=== PATIENT | female | born 1965 | race American Indian/Alaskan Native ===

== ENCOUNTER 2017-06-09 13:00 | Observation (INO) | payer MEDICARE, OTHER ==
[2017-06-09 13:24] VITALS: BMI 28.3
--- NOTE | 2017-06-09 14:08 | C.PDOC ---
History Of Present Illness Patient is a 51 y/o female, with past medical history of breast cancer on chemotherapy, is sent to the emergency department by Dr. Real for platelet count of 13 on routine blood work done yesterday. Patient complains of occasional intermittent headache, but denies any at this time. Patient denies any dizziness, visual changes, n/v/d, or fever. No signs of bleeding. Time Seen by Provider: 06/09/17 13:43 Chief Complaint (Nursing): Abnormal Labs History Per: Patient History/Exam Limitations: no limitations Onset/Duration Of Symptoms: Gradual Current Symptoms Are (Timing): Still Present Severity: None Pain Scale Rating Of: 0 Reports Recently: Treated By A Physician Recent travel outside of the [place]: No Additional History Per: Patient Past Medical History Reviewed: Historical Data, Nursing Documentation, Vital Signs Vital Signs: Last Vital Signs Temp 98.5 F 06/09/17 13:24 Pulse 59 L 06/09/17 13:24 Resp 20 06/09/17 13:24 BP 130/82 06/09/17 13:24 Pulse Ox 98 06/09/17 14:11 - Medical History PMH: HTN, Malignancy (Breast CA) Denies: Chronic Kidney Disease Surgical History: - [facility] Procedures C.A.T. SCAN OF THORAX (03/15/14) CLOSED [PERCUTANEOUS] [NEEDLE] BIOPSY OF LUNG (03/15/14) DX ULTRASOUND-THORAX NEC (04/13/14) INSERTION OF TOTALLY IMPLANTABLE VASC ACCESS DEVIC (04/13/14) LYMPHATIC STRUCT BIOPSY (09/04/14) OTHER AND UNSPECIFIED ROBOTIC ASSISTED PROCEDURE (09/04/14) OTHER LOBECTOMY OF LUNG (09/04/14) PACKED CELL TRANSFUSION (09/04/14) THORAX SFT TISS XRAY NEC (04/13/14) TRANSFUSE NONAUT PLATELETS IN PERIPH VEIN, PERC (08/13/16) TRANSFUSE NONAUT RED BLOOD CELLS IN PERIPH VEIN, PERC (08/13/16) Family History: States: Unknown Family Hx - Social History Hx Alcohol Use: No Hx Substance Use: No - Immunization History Hx Tetanus Toxoid Vaccination: No Hx Influenza Vaccination: No Hx Pneumococcal Vaccination: No Review Of Systems Except As Marked, All Systems Reviewed And Found Negative. Constitutional: Negative for: Fever, Chills Eyes: Negative for: Vision Change Cardiovascular: Negative for: Chest Pain, Palpitations Respiratory: Negative for: Shortness of Breath Gastrointestinal: Negative for: Nausea, Vomiting, Abdominal Pain, Diarrhea, Constipation Neurological: Positive for: Headache. Negative for: Dizziness Physical Exam - Physical Exam Appears: Non-toxic, No Acute Distress Skin: Normal Color, Warm, Dry Head: Atraumatic, Normacephalic Eye(s): bilateral: Normal Inspection Neck: Normal ROM, Supple Chest: Symmetrical Cardiovascular: Rhythm Regular, No Murmur Respiratory: Normal Breath Sounds, No Rales, No Rhonchi, No Wheezing Gastrointestinal/Abdominal: Soft, No Tenderness Extremity: Bilateral: Atraumatic, Normal ROM Neurological/Psych: Oriented x3, Normal Speech, Normal Cognition, Other ( Neurologically intact) ED Course And Treatment - Laboratory Results Result Diagrams: 06/09/17 14:26 06/09/17 14:26 Lab Interpretation: Abnormal (WBC 1.6 with 36% neutrophils, platelet ct 11,000) O2 Sat by Pulse Oximetry: 98 (on RA) Pulse Ox Interpretation: Normal Progress Note: Blood work ordered and reviewed. - Physician Consult Information Outcome Of Conversation: Case discussed with Javier. He is requesting she be admitted to the [facility] sales[facility] physician. Discussed with Dr Monroe who agrees to admit for platelet transfusion. Disposition - Disposition Disposition: HOSPITALIZED Disposition Time: 15:18 Condition: FAIR - Clinical Impression Clinical Impression: Severe thrombocytopenia, Neutropenia - Scribe Statement The provider has reviewed the documentation as recorded by the Bailey Benjamin All medical record entries made by the Bailey were at my direction and personally dictated by me. I have reviewed the chart and agree that the record accurately reflects my personal performance of the history, physical exam, medical decision making, and the department course for this patient. I have also personally directed, reviewed, and agree with the discharge instructions and disposition.
[2017-06-09 14:37] LABS: ALBUMIN 3.7 g/dL (3.5-5.0)
[2017-06-09 14:39] LABS: BASO % 0.3 % (0.0-2.0); EOS % 0.5 % (0.0-4.0); HEMOGLOBIN 8.3 g/dL (11.0-16.0); LYMPH # 0.7 K/uL (1.0-4.3); LYMPH % 46.1 % (20.0-40.0); MEAN CELL VOLUME 101.2 fL (81.0-99.0); MEAN CORPUSCULAR HEMOGLOBIN 32.2 pg (27.0-31.0); MEAN CORPUSCULAR HGB CONC 31.8 g/dL (33.0-37.0); MONO # 0.3 K/uL (0.0-0.8); MONO % 16.9 % (0.0-10.0); NEUT # 0.6 K/uL (1.8-7.0); NEUT % 36.2 % (50.0-75.0); NRBC % 1.6 % (0.0-2.0); RBC 2.58 Mil/uL (3.80-5.20); RED CELL DISTRIBUTION WIDTH 19.1 % (11.5-14.5)
[2017-06-09 14:40] LABS: GFR AFRICAN-AMERICAN > 60; GFR NON-AFRICAN AMERICAN > 60
[2017-06-09 14:41] LABS: ALB/GLOB RATIO 1.2 (1.0-2.1); ALT/SGPT 25 U/L (9-52); AST/SGOT 39 U/L (14-36); BLOOD UREA NITROGEN 9 mg/dL (7-17); CALCIUM 8.5 mg/dl (8.6-10.4)
[2017-06-09 14:44] LABS: WHITE BLOOD COUNT 1.6 K/uL (4.8-10.8)
[2017-06-09] MEDS: Dextrose 5%/0.9% NS 1,000 ML IV SCH (17:43)
[2017-06-09 21:04] VITALS: RESP 20
--- NOTE | 2017-06-09 22:05 | CP.PCM.CON ---
Past Patient History - Past Medical History & Family History Past Medical History?: Yes - Past Social History Smoking Status: Never Smoked - CARDIAC Hx Hypertension: Yes - PULMONARY Hx Respiratory Disorders: Yes (lung nodule DUE TO LEFT BREAST CA) - NEUROLOGICAL Hx Neurological Disorder: No Other/Comment: AAOX3 - HEENT Hx HEENT Problems: No - RENAL Hx Chronic Kidney Disease: No - ENDOCRINE/METABOLIC Hx Endocrine Disorders: No - HEMATOLOGICAL/ONCOLOGICAL Hx Blood Disorders: Yes Hx Blood Transfusions: Yes Hx Blood Transfusion Reaction: No Hx Cancer: Yes (breast ca stage 4) Hx Chemotherapy: Yes (LAST CHEMO 05/26/17) - INTEGUMENTARY Hx Dermatological Problems: Yes Other/Comment: LEFT BREAST MASTECTOMY - MUSCULOSKELETAL/RHEUMATOLOGICAL Hx Musculoskeletal Disorders: No Hx Falls: No (DENIES) - GASTROINTESTINAL Hx Gastrointestinal Disorders: No - GENITOURINARY/GYNECOLOGICAL Hx Genitourinary Disorders: No - PSYCHIATRIC Hx Substance Use: No - SURGICAL HISTORY Hx Surgeries: Yes Hx Breast Biopsy: Yes Hx Mastectomy: Yes (LEFT MASTECTOMY 2011) Hx Vascular Access Device: Yes (INSERTION AND REMOVAL PORTACATH re insertion) - ANESTHESIA Hx Anesthesia: Yes Hx Anesthesia Reactions: No Hx Malignant Hyperthermia: No Meds Allergies/Adverse Reactions: Allergies Allergy/AdvReac Type Severity Reaction Status Date / Time No Known Allergies Allergy Verified 06/09/17 13:22 - Medications Medications: Current Medications Amlodipine Besylate (Norvasc) 5 mg PO DAILY [facility] Dextrose/Sodium Chloride (Dextrose 5%/0.9% Ns 1000 Ml) 1,000 mls @ 100 mls/hr IV .Q10H [facility] Last Admin: 06/09/17 17:43 Dose: 100 mls/hr Results - Vital Signs Recent Vital Signs: Last Vital Signs Temp 98.3 F 06/09/17 20:50 Pulse 66 06/09/17 20:50 Resp 20 06/09/17 20:50 BP 142/81 06/09/17 20:50 Pulse Ox 97 06/09/17 20:37 - Labs Result Diagrams: 06/09/17 14:26 06/09/17 14:26 Labs: Laboratory Results - last 24 hr 06/09/17 17:32 Blood Type O POSITIVE Antibody Screen Negative
--- NOTE | 2017-06-09 22:40 | CP.PCM.HP ---
History of Present Illness - History of Present Illness History of Present Illness: CC: low platelet count HPI: Patient is a 51 y/o female, with past medical history of breast cancer diagnosed in 2011 on chemotherapy, is sent to the emergency department by Dr. Real for platelet count of 13 on routine blood work done yesterday. Patient complains of occasional intermittent headache, but denies any at this time. Patient denies any dizziness, visual changes, n/v/d, or fever. No signs of bleeding Present on Admission - Present on Admission Any Indicators Present on Admission: Yes Past Patient History - Past Medical History & Family History Past Medical History?: Yes - Past Social History Smoking Status: Never Smoked - CARDIAC Hx Hypertension: Yes - PULMONARY Hx Respiratory Disorders: Yes (lung nodule DUE TO LEFT BREAST CA) - NEUROLOGICAL Hx Neurological Disorder: No Other/Comment: AAOX3 - HEENT Hx HEENT Problems: No - RENAL Hx Chronic Kidney Disease: No - ENDOCRINE/METABOLIC Hx Endocrine Disorders: No - HEMATOLOGICAL/ONCOLOGICAL Hx Blood Disorders: Yes Hx Blood Transfusions: Yes Hx Blood Transfusion Reaction: No Hx Cancer: Yes (breast ca stage 4) Hx Chemotherapy: Yes (LAST CHEMO 05/26/17) - INTEGUMENTARY Hx Dermatological Problems: Yes Other/Comment: LEFT BREAST MASTECTOMY - MUSCULOSKELETAL/RHEUMATOLOGICAL Hx Musculoskeletal Disorders: No Hx Falls: No (DENIES) - GASTROINTESTINAL Hx Gastrointestinal Disorders: No - GENITOURINARY/GYNECOLOGICAL Hx Genitourinary Disorders: No - PSYCHIATRIC Hx Substance Use: No - SURGICAL HISTORY Hx Surgeries: Yes Hx Breast Biopsy: Yes Hx Mastectomy: Yes (LEFT MASTECTOMY 2011) Hx Vascular Access Device: Yes (INSERTION AND REMOVAL PORTACATH re insertion) - ANESTHESIA Hx Anesthesia: Yes Hx Anesthesia Reactions: No Hx Malignant Hyperthermia: No Meds Allergies/Adverse Reactions: Allergies Allergy/AdvReac Type Severity Reaction Status Date / Time No Known Allergies Allergy Verified 06/09/17 13:22 Physical Exam - Constitutional Appears: No Acute Distress - Head Exam Head Exam: ATRAUMATIC, NORMAL INSPECTION, NORMOCEPHALIC - Eye Exam Eye Exam: EOMI, Normal appearance, PERRL Pupil Exam: NORMAL ACCOMODATION, PERRL - Respiratory Exam Respiratory Exam: Clear to Auscultation Bilateral, NORMAL BREATHING PATTERN - Cardiovascular Exam Cardiovascular Exam: REGULAR RHYTHM Results - Vital Signs Recent Vital Signs: Last Vital Signs Temp 97.9 F 06/09/17 21:44 Pulse 63 06/09/17 21:44 Resp 20 06/09/17 21:44 BP 140/79 06/09/17 21:44 Pulse Ox 97 06/09/17 20:37 - Labs Result Diagrams: 06/09/17 14:26 06/09/17 14:26 Labs: Laboratory Results - last 24 hr 06/09/17 17:32 Blood Type O POSITIVE Antibody Screen Negative Assessment & Plan (1) Dehydration Status: Acute (2) Pancytopenia Assessment and Plan: admit transfuse platelets hematology/oncology consult Status: Acute (3) Breast cancer Status: Chronic (4) HTN (hypertension) Status: Chronic
[2017-06-10] MEDS: Dextrose 5%/0.9% NS 1,000 ML IV SCH (02:30)
[2017-06-10 06:38] LABS: BASO % 0.6 % (0.0-2.0); EOS % 0.6 % (0.0-4.0); HEMOGLOBIN 8.1 g/dL (11.0-16.0); LYMPH # 0.7 K/uL (1.0-4.3); LYMPH % 52.5 % (20.0-40.0); MEAN CELL VOLUME 100.7 fL (81.0-99.0); MEAN CORPUSCULAR HEMOGLOBIN 32.3 pg (27.0-31.0); MEAN CORPUSCULAR HGB CONC 32.1 g/dL (33.0-37.0); MEAN PLATELET VOLUME 8.2 fL (7.2-11.7); MONO # 0.3 K/uL (0.0-0.8); MONO % 19.2 % (0.0-10.0); NEUT # 0.4 K/uL (1.8-7.0); NEUT % 27.1 % (50.0-75.0); NRBC % 1.4 % (0.0-2.0); RBC 2.5 Mil/uL (3.80-5.20); RED CELL DISTRIBUTION WIDTH 18.9 % (11.5-14.5)
[2017-06-10 06:43] LABS: WHITE BLOOD COUNT 1.4 K/uL (4.8-10.8)
[2017-06-10 07:18] LABS: ALBUMIN 3.3 g/dL (3.5-5.0)
[2017-06-10 07:20] LABS: ALB/GLOB RATIO 1.1 (1.0-2.1); AST/SGOT 27 U/L (14-36); GFR AFRICAN-AMERICAN > 60; GFR NON-AFRICAN AMERICAN > 60
[2017-06-10 07:21] LABS: ALT/SGPT 25 U/L (9-52); BLOOD UREA NITROGEN 8 mg/dL (7-17); CALCIUM 8.6 mg/dl (8.6-10.4)
[2017-06-10 07:56] VITALS: BP 118/73; PULSE 55; TEMP 98.3; O2SAT 98
--- NOTE | 2017-06-10 11:13 | CP.PCM.PN ---
Subjective - Date & Time of Evaluation Date of Evaluation: 06/10/17 Time of Evaluation: 11:13 - Subjective Subjective: awake, alert, no sob or chest pains. Objective - Vital Signs/Intake and Output Vital Signs (last 24 hours): Temp Pulse Resp BP Pulse Ox 98.3 F 55 L 20 118/73 98 06/10/17 07:55 06/10/17 07:55 06/10/17 07:55 06/10/17 07:55 06/10/17 07:55 Intake and Output: 06/10/17 06/10/17 06:59 18:59 Intake Total 100 920 Balance 100 920 - Medications Medications: Current Medications Amlodipine Besylate (Norvasc) 5 mg PO DAILY [facility] Last Admin: 06/10/17 09:15 Dose: 5 mg Heparin Sodium (Porcine) (Heparin Lock Flush) 300 units IVF ONCE ONE Stop: 06/10/17 11:07 Dextrose/Sodium Chloride (Dextrose 5%/0.9% Ns 1000 Ml) 1,000 mls @ 100 mls/hr IV .Q10H [facility] Last Admin: 06/10/17 02:30 Dose: Not Given - Labs Labs: 06/10/17 06:25 06/10/17 06:25 Assessment and Plan - Assessment and Plan (Free Text) Assessment: Patient admitted with severe thrombocytopenia, received platelet transfusion last night, platelet increased to 50 this am. Seen and examined, alert and oriented x3, NAD. Denies any sob or chest pains. Cleared by oncologyst, D/W DR Monroe, plan for discharge home today. Advised to follow up in the office in 1 week.
--- NOTE | 2017-06-10 21:15 | CP.PCM.DIS ---
Provider - Provider Date of Admission: 06/09/17 15:20 Attending physician: Esteban Monroe MD Diagnosis - Discharge Diagnosis (1) Dehydration Status: Acute (2) Pancytopenia Status: Acute (3) Breast cancer Status: Chronic (4) HTN (hypertension) Status: Chronic Hospital Course - Lab Results Lab Results: Most Recent Lab Values WBC 1.4 K/uL (4.8-10.8) L* 06/10/17 06:25 RBC 2.50 Mil/uL (3.80-5.20) L 06/10/17 06:25 Hgb 8.1 g/dL (11.0-16.0) L 06/10/17 06:25 Hct 25.2 % (34.0-47.0) L 06/10/17 06:25 MCV 100.7 fL (81.0-99.0) H 06/10/17 06:25 MCH 32.3 pg (27.0-31.0) H 06/10/17 06:25 MCHC 32.1 g/dL (33.0-37.0) L 06/10/17 06:25 RDW 18.9 % (11.5-14.5) H 06/10/17 06:25 Plt Count 50 K/uL (130-400) L D 06/10/17 06:25 MPV 8.2 fL (7.2-11.7) 06/10/17 06:25 Neut % (Auto) 27.1 % (50.0-75.0) L 06/10/17 06:25 Lymph % (Auto) 52.5 % (20.0-40.0) H 06/10/17 06:25 [place] % (Auto) 19.2 % (0.0-10.0) H 06/10/17 06:25 Eos % (Auto) 0.6 % (0.0-4.0) 06/10/17 06:25 Baso % (Auto) 0.6 % (0.0-2.0) 06/10/17 06:25 Neut # 0.4 K/uL (1.8-7.0) L 06/10/17 06:25 Lymph # 0.7 K/uL (1.0-4.3) L 06/10/17 06:25 [place] # 0.3 K/uL (0.0-0.8) 06/10/17 06:25 Eos # 0.0 K/uL (0.0-0.7) 06/10/17 06:25 Baso # 0.0 K/uL (0.0-0.2) 06/10/17 06:25 Differential Comment 06/09/17 14:26 Smear Path Review 06/09/17 14:26 Sodium 143 mmol/L (132-148) 06/10/17 06:25 Potassium 3.2 mmol/L (3.6-5.2) L 06/10/17 06:25 Chloride 102 mmol/L (98-107) 06/10/17 06:25 Carbon Dioxide 29 mmol/L (22-30) 06/10/17 06:25 Anion Gap 15 (10-20) 06/10/17 06:25 BUN 8 mg/dL (7-17) 06/10/17 06:25 Creatinine 0.7 MG/DL (0.7-1.2) 06/10/17 06:25 Est GFR ( Amer) > 60 06/10/17 06:25 Est GFR (Non-Af Amer) > 60 06/10/17 06:25 Random Glucose 89 mg/dL (65-105) 06/10/17 06:25 Calcium 8.6 mg/dl (8.6-10.4) 06/10/17 06:25 Total Bilirubin 0.7 mg/dL (0.2-1.3) 06/10/17 06:25 AST 27 U/L (14-36) 06/10/17 06:25 ALT 25 U/L (9-52) 06/10/17 06:25 Alkaline Phosphatase 61 U/L (38-126) 06/10/17 06:25 Total Protein 6.3 g/dL (6.3-8.3) 06/10/17 06:25 Albumin 3.3 g/dL (3.5-5.0) L 06/10/17 06:25 Globulin 3.0 gm/dL (2.2-3.9) 06/10/17 06:25 Albumin/Globulin Ratio 1.1 (1.0-2.1) 06/10/17 06:25 Blood Type O POSITIVE 06/09/17 17:32 Antibody Screen Negative 06/09/17 17:32 Discharge Exam - Head Exam Head Exam: ATRAUMATIC, NORMAL INSPECTION, NORMOCEPHALIC Discharge Plan - Follow Up Plan Condition: FAIR Disposition: HOME/ ROUTINE Instructions: Blood Transfusion (GEN), Blood Transfusion Reactions (GEN), Neutropenia (DC), Thrombocytopenia (DC) Additional Instructions: F/U with in the office in one week. Referrals: Mathew Real MD [Staff Provider] - Esteban Monroe MD [Staff Provider] -
== END 2017-06-10 11:29 | disposition home or self-care (01) ==
LOC: C.ER 13:00 → C.9E 15:20 → C.3T 15:44
PROVIDERS: ADMIT Internal Medicine; ATTEND Internal Medicine
DX: D61.818 Other pancytopenia (principal); E86.0 Dehydration; I10 Essential (primary) hypertension; Z85.3 Personal history of malignant neoplasm of breast; Z90.12 Acquired absence of left breast and nipple

== ENCOUNTER 2017-12-27 12:20 | Inpatient (IN) | payer MEDICARE, OTHER ==
[2017-12-27 12:28] VITALS: BMI 29.2
[2017-12-27] MEDS ORDERED: Sodium Chloride 0.9% 1,000 ML IV ONE (14:46)
--- NOTE | 2017-12-27 14:46 | C.PDOC ---
History Of Present Illness 52 y/o female, brought by ambulance, presents to the ER complaining of neck pain which has been present for the past 2 days. Patient has a history of breast cancer and metastatic lung cancer. Her oncologist is and she recently had radiation therapy in the neck. Sister states that she has generalized weakness and a decreased appetite. Patient denies having headache, fever, cough, shortness of breath, and abdominal pain. Time Seen by Provider: 12/27/17 14:16 Chief Complaint (Nursing): Weakness/Neurological Deficit History Per: Patient History/Exam Limitations: no limitations Onset/Duration Of Symptoms: Days Current Symptoms Are (Timing): Still Present Severity: Moderate Past Medical History Reviewed: Historical Data, Nursing Documentation, Vital Signs Vital Signs: Last Vital Signs Temp 98.3 F 12/27/17 12:28 Pulse 82 12/27/17 16:44 Resp 18 12/27/17 16:44 BP 111/81 12/27/17 16:44 Pulse Ox 98 12/27/17 15:34 - Medical History PMH: Anemia (blood transfusions), HTN, Malignancy (Breast CA) Denies: Chronic Kidney Disease Surgical History: Other Surgeries: Hx of surgeries - [facility] Procedures C.A.T. SCAN OF THORAX (03/15/14) CLOSED [PERCUTANEOUS] [NEEDLE] BIOPSY OF LUNG (03/15/14) DX ULTRASOUND-THORAX NEC (04/13/14) INSERTION OF TOTALLY IMPLANTABLE VASC ACCESS DEVIC (04/13/14) LYMPHATIC STRUCT BIOPSY (09/04/14) OTHER AND UNSPECIFIED ROBOTIC ASSISTED PROCEDURE (09/04/14) OTHER LOBECTOMY OF LUNG (09/04/14) PACKED CELL TRANSFUSION (09/04/14) THORAX SFT TISS XRAY NEC (04/13/14) TRANSFUSE NONAUT PLATELETS IN PERIPH VEIN, PERC (08/13/16) TRANSFUSE NONAUT RED BLOOD CELLS IN PERIPH VEIN, PERC (08/13/16) Family History: States: No Known Family Hx - Social History Hx Alcohol Use: No Hx Substance Use: No - Immunization History Hx Tetanus Toxoid Vaccination: No Hx Influenza Vaccination: No Hx Pneumococcal Vaccination: No Review Of Systems Except As Marked, All Systems Reviewed And Found Negative. Constitutional: Positive for: Malaise. Negative for: Fever, Chills Cardiovascular: Negative for: Chest Pain Respiratory: Negative for: Cough, Shortness of Breath Gastrointestinal: Negative for: Abdominal Pain Musculoskeletal: Positive for: Neck Pain Neurological: Negative for: Headache Physical Exam - Physical Exam Appears: No Acute Distress Skin: Normal Color, Warm Head: Atraumatic, Normacephalic Eye(s): bilateral: Normal Inspection Nose: Normal Oral Mucosa: Dry Lips: Other (chapped) Neck: Other (uncapped soft collar on neck) Chest: Other (left mastectomy) Cardiovascular: Rhythm Regular Respiratory: Normal Breath Sounds, No Accessory Muscle Use, No Rales, No Rhonchi , No Wheezing Gastrointestinal/Abdominal: Normal Exam, Soft, No Tenderness Extremity: Normal ROM Neurological/Psych: Oriented x3, Normal Speech, Normal Motor, Normal Sensation ED Course And Treatment - Laboratory Results Result Diagrams: 12/27/17 15:42 12/27/17 16:15 O2 Sat by Pulse Oximetry: 98 (RA) Pulse Ox Interpretation: Normal Medical Decision Making Medical Decision Making: Plan: --CXR --Labs --UA --EKG --Flu Swab Disposition Discussed With DrPollo: Mathew Real Doctor Will See Patient In The: Hospital Counseled Patient/Family Regarding: Studies Performed, Diagnosis - Disposition Disposition Time: 16:49 Condition: GUARDED Forms: [employer] (Romanian) - POA Present On Arrival: None - Clinical Impression Clinical Impression: Dehydration, Pancytopenia due to chemotherapy, Metastatic cancer - Scribe Statement The provider has reviewed the documentation as recorded by the Curlyibe Myke Cowan Provider Attestation: All medical record entries made by the Scribe were at my direction and personally dictated by me. I have reviewed the chart and agree that the record accurately reflects my personal performance of the history, physical exam, medical decision making, and the department course for this patient. I have also personally directed, reviewed, and agree with the discharge instructions and disposition. Decision To Admit - Pt Status Changed To: Hospital Disposition Of: Inpatient - Admit Certification Admit to Inpatient:: After my assessment, the patient will require hospitalization for at least two midnights. This is because of the severity of symptoms shown, intensity of services needed, and/or the medical risk in this patient being treated as an outpatient. - InPatient: Physician Admission Certification: I certify that this patient requires 2 or more midnights of care for the following reason:: pancitopenic - . Bed Request Type: Regular Admitting Physician: Hu Benjamin Patient Diagnosis: Dehydration, Pancytopenia due to chemotherapy, Metastatic cancer
[2017-12-27] MEDS ORDERED: Sodium Chloride 0.9% 1,000 ML ONE (15:02)
--- NOTE | 2017-12-27 15:47 | RAD ---
PROCEDURE: CHEST RADIOGRAPH, 1 VIEW HISTORY: SOB COMPARISON: 09/08/2014 FINDINGS: LUNGS: Clear. PLEURA: No pneumothorax or pleural fluid seen. CARDIOVASCULAR: Normal heart size. Right central venous infusion port. OSSEOUS STRUCTURES: Sclerosis of the lateral border of the scapula extending to the glenoid and coracoid process. 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 However, this has previously been evaluated with radionuclide bone scan and described as likely reflecting sclerotic metastasis. VISUALIZED UPPER ABDOMEN: Normal. OTHER FINDINGS: None. IMPRESSION: Sclerosis of the coracoid, glenoid and lateral margin of the right scapula. Possible Paget's disease versus sclerotic metastasis. No acute infiltrate.
[2017-12-27 15:52] LABS: BASO % 0.1 % (0.0-2.0); EOS % 0.5 % (0.0-4.0); LYMPH # 0.2 K/uL (1.0-4.3); LYMPH % 15.6 % (20.0-40.0); MEAN CORPUSCULAR HEMOGLOBIN 33.2 pg (27.0-31.0); MEAN CORPUSCULAR HGB CONC 32.6 g/dL (33.0-37.0); MEAN PLATELET VOLUME 9.1 fL (7.2-11.7); MONO # 0.1 K/uL (0.0-0.8); MONO % 9.5 % (0.0-10.0); NEUT # 0.9 K/uL (1.8-7.0); NEUT % 74.3 % (50.0-75.0); NRBC % 0.8 % (0.0-2.0); RBC 4.02 Mil/uL (3.80-5.20); RED CELL DISTRIBUTION WIDTH 19.3 % (11.5-14.5)
[2017-12-27 15:58] LABS: WHITE BLOOD COUNT 1.2 K/uL (4.8-10.8)
[2017-12-27 15:59] LABS: HEMOGLOBIN 13.4 g/dL (11.0-16.0); MEAN CELL VOLUME 101.9 fL (81.0-99.0)
[2017-12-27 16:35] LABS: ALB/GLOB RATIO 1.1 (1.0-2.1); ALBUMIN 3.7 g/dL (3.5-5.0); ALT/SGPT 31 U/L (9-52); AST/SGOT 25 U/L (14-36); BLOOD UREA NITROGEN 28 mg/dL (7-17); CALCIUM 8.3 mg/dl (8.6-10.4); GFR AFRICAN-AMERICAN > 60; GFR NON-AFRICAN AMERICAN > 60
[2017-12-27 16:45] LABS: B-TYPE NATRIURETIC PEPTIDE 332 pg/mL (0-900)
--- NOTE | 2017-12-27 19:33 | CP.PCM.HP ---
Past Patient History - Infectious Disease Hx of Infectious Diseases: None - Past Medical History & Family History Past Medical History?: Yes - Past Social History Smoking Status: Never Smoked - CARDIAC Hx Hypertension: Yes - PULMONARY Hx Respiratory Disorders: No Other/Comment: lung bx r lower lobe, right lower lobectomy 09/04/2014 - NEUROLOGICAL Hx Neurological Disorder: No - HEENT Hx HEENT Problems: No - RENAL Hx Chronic Kidney Disease: No - ENDOCRINE/METABOLIC Hx Endocrine Disorders: No - HEMATOLOGICAL/ONCOLOGICAL Hx Anemia: Yes (blood transfusions) - INTEGUMENTARY Hx Dermatological Problems: Yes Other/Comment: LEFT BREAST MASTECTOMY - MUSCULOSKELETAL/RHEUMATOLOGICAL Hx Musculoskeletal Disorders: Yes Hx Falls: Yes Hx Unsteady Gait: Yes (off balance unsteady at times) - GASTROINTESTINAL Other/Comment: breast ca and chemo - GENITOURINARY/GYNECOLOGICAL Hx Genitourinary Disorders: No - PSYCHIATRIC Hx Substance Use: No - SURGICAL HISTORY Hx Vascular Access Device: Yes Other/Comment: R sided port. - ANESTHESIA Hx Anesthesia: Yes Hx Anesthesia Reactions: No Hx Malignant Hyperthermia: No Meds Allergies/Adverse Reactions: Allergies Allergy/AdvReac Type Severity Reaction Status Date / Time No Known Allergies Allergy Verified 12/10/17 13:31 Physical Exam - Constitutional Appears: Well - Head Exam Head Exam: ATRAUMATIC, NORMAL INSPECTION, NORMOCEPHALIC - Eye Exam Eye Exam: EOMI, Normal appearance, PERRL Pupil Exam: NORMAL ACCOMODATION, PERRL - ENT Exam ENT Exam: Mucous Membranes Moist, Normal Exam - Neck Exam Neck exam: Positive for: Normal Inspection - Respiratory Exam Respiratory Exam: Decreased Breath Sounds - Cardiovascular Exam Cardiovascular Exam: REGULAR RHYTHM, +S1, +S2 - GI/Abdominal Exam GI & Abdominal Exam: Diminished Bowel Sounds, Soft - Rectal Exam Rectal Exam: Deferred Results - Vital Signs Recent Vital Signs: Last Vital Signs Temp 98.3 F 12/27/17 12:28 Pulse 78 12/27/17 17:43 Resp 100 H 12/27/17 17:43 BP 115/73 12/27/17 17:43 Pulse Ox 98 12/27/17 16:50 - Labs Result Diagrams: 12/27/17 15:42 12/27/17 16:15 Labs: Laboratory Results - last 24 hr 12/27/17 12/27/17 12/27/17 15:10 15:42 16:15 WBC 1.2 L* RBC 4.02 Hgb 13.4 D Hct 41.0 MCV 101.9 H D MCH 33.2 H MCHC 32.6 L RDW 19.3 H Plt Count 39 L D MPV 9.1 Neut % (Auto) 74.3 Lymph % (Auto) 15.6 L [place] % (Auto) 9.5 Eos % (Auto) 0.5 Baso % (Auto) 0.1 Neut # (Auto) 0.9 L Lymph # (Auto) 0.2 L [place] # (Auto) 0.1 Eos # (Auto) 0.0 Baso # (Auto) 0.0 Sodium 142 Potassium 3.5 L Chloride 103 Carbon Dioxide 29 Anion Gap 14 BUN 28 H Creatinine 0.6 L Est GFR ( Amer) > 60 Est GFR (Non-Af Amer) > 60 Random Glucose 116 H Calcium 8.3 L Total Bilirubin 1.2 AST 25 ALT 31 Alkaline Phosphatase 80 Troponin I 0.0540 NT-Pro-B Natriuret Pep 332 Total Protein 7.1 Albumin 3.7 Globulin 3.4 Albumin/Globulin Ratio 1.1 Influenza Typ A,B (EIA) Negative for flu a/b
[2017-12-28 02:47] LABS: SQUAMOUS EPITHIAL 7 /hpf (0-5); URINE BACTERIA RARE (<OCC); URINE BILIRUBIN NEGATIVE (NEGATIVE); URINE BLOOD NEGATIVE (NEGATIVE); URINE CLARITY Hazy (Clear); URINE COLOR Yellow (YELLOW); URINE GLUCOSE (UA) NORMAL (Normal); URINE LEUKOCYTE ESTERASE NEG Leu/uL (Negative); URINE NITRATE NEGATIVE (NEGATIVE); URINE PROTEIN NEGATIVE (NEGATIVE)
[2017-12-28] MEDS ORDERED: Oxycodone/Acetaminophen 5/325 mg Tab ONE ×2 (04:07→08:14)
[2017-12-28] MEDS: Oxycodone/Acetaminophen 5/325 mg Tab PO SCH ×3 (04:16→12:00)
[2017-12-28] MEDS ORDERED: Enoxaparin 30 mg Syringe SC SCH (10:00)
[2017-12-28] MEDS: levETIRAcetam 100 mg/ml (5ml) Oral Syringe PO SCH ×2 (11:14→18:04)
[2017-12-28] MEDS: POLYETHYLENE GLYCOL 3350 17 GM/Dose PACKET PO SCH (11:15)
--- NOTE | 2017-12-28 11:51 | CARD ---
APPROVED REPORT EKG Measurement Heart [id number] <Conclusion> Normal sinus rhythm Nonspecific ST abnormality Abnormal ECG
[2017-12-28 14:26] LABS: BASO % 0.5 % (0.0-2.0); EOS % 0.7 % (0.0-4.0); LYMPH # 0.2 K/uL (1.0-4.3); LYMPH % 21.8 % (20.0-40.0); MEAN CELL VOLUME 101.8 fL (81.0-99.0); MEAN CORPUSCULAR HEMOGLOBIN 33.6 pg (27.0-31.0); MEAN PLATELET VOLUME 8.7 fL (7.2-11.7); MONO # 0.1 K/uL (0.0-0.8); MONO % 19.6 % (0.0-10.0); NEUT # 0.4 K/uL (1.8-7.0); NEUT % 57.4 % (50.0-75.0); RBC 3.31 Mil/uL (3.80-5.20); RED CELL DISTRIBUTION WIDTH 18.5 % (11.5-14.5)
[2017-12-28 14:35] LABS: WHITE BLOOD COUNT 0.7 K/uL (4.8-10.8)
[2017-12-28 14:36] LABS: HEMOGLOBIN 11.2 g/dL (11.0-16.0)
[2017-12-28 14:43] LABS: ALB/GLOB RATIO 1.1 (1.0-2.1); ALT/SGPT 30 U/L (9-52); AST/SGOT 23 U/L (14-36); BLOOD UREA NITROGEN 17 mg/dL (7-17); CALCIUM 7.7 mg/dl (8.6-10.4); GFR AFRICAN-AMERICAN > 60; GFR NON-AFRICAN AMERICAN > 60
[2017-12-28] MEDS: Potassium Ch 20mEq in D5-1/2NS 1,000 ML IV SCH (15:55)
[2017-12-28] MEDS ORDERED: Potassium Chloride 20 mEq ER Tab PO ONE ×2 (16:00→18:00)
--- NOTE | 2017-12-28 16:27 | CP.PCM.PN ---
Subjective - Date & Time of Evaluation Date of Evaluation: 12/28/17 Time of Evaluation: 10:00 - Subjective Subjective: clinically same Objective - Vital Signs/Intake and Output Vital Signs (last 24 hours): Temp Pulse Resp BP Pulse Ox 98.3 F 72 20 95/66 L 95 12/28/17 08:07 12/28/17 08:07 12/28/17 08:07 12/28/17 08:07 12/28/17 08:07 - Medications Medications: Current Medications Amlodipine Besylate (Norvasc) 5 mg PO DAILY [facility] Last Admin: 12/28/17 11:15 Dose: 5 mg Dexamethasone (Decadron) 4 mg PO BID [facility] Last Admin: 12/28/17 11:14 Dose: 4 mg Famotidine (Pepcid) 20 mg PO BID [facility] Last Admin: 12/28/17 11:15 Dose: 20 mg Potassium Chloride/Dextrose/Sod Cl (Potassium Chl 20 Meq In D5-1/2ns) 1,000 mls @ 80 mls/hr IV .[id number] [facility] Levetiracetam (Keppra) 500 mg PO BID [facility] Last Admin: 12/28/17 11:14 Dose: 500 mg Ondansetron HCl (Zofran Inj) 4 mg IVP Q8H PRN PRN Reason: Nausea/Vomiting Oxycodone/Acetaminophen (Percocet 5/325 Mg Tab) 1 tab PO Q4 PRN PRN Reason: Pain, severe (8-10) Stop: 12/31/17 04:01 Polyethylene Glycol (Miralax) 17 gm PO DAILY [facility] Last Admin: 12/28/17 11:15 Dose: 17 gm - Labs Labs: 12/28/17 14:16 12/28/17 14:16 - Constitutional Appears: Well - Head Exam Head Exam: ATRAUMATIC, NORMAL INSPECTION, NORMOCEPHALIC - Eye Exam Eye Exam: EOMI, Normal appearance, PERRL Pupil Exam: NORMAL ACCOMODATION, PERRL - ENT Exam ENT Exam: Mucous Membranes Moist, Normal Exam - Neck Exam Neck Exam: Full ROM, Normal Inspection. absent: Lymphadenopathy - Respiratory Exam Respiratory Exam: Decreased Breath Sounds - Cardiovascular Exam Cardiovascular Exam: REGULAR RHYTHM, +S1, +S2 - GI/Abdominal Exam GI & Abdominal Exam: Soft, Diminished Bowel Sounds - Rectal Exam Rectal Exam: Deferred
--- NOTE | 2017-12-28 18:51 | CP.PCM.CON ---
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 The patient was initially diagnosed with a localized breast cancer in 2011 but unfortunately was found to have lung metastasis in 2013. She notes to diminished appetite and weakness for several days. She denies nausea and vomiting. She denied fevers and chills. Past medical history: Stage IV breast cancer Past surgical history: Portacath placement Family history: Denies hematologic and oncologic problems Social history: Denies tobacco, alcohol, and illicit drug use. Allergies: NKA Review of systems: All remaining review of systems including HEENT, cardiovascular, respiratory, gastrointestinal, genitourinary, musculoskeletal, dermatologic, neurologic, and psychiatric are negative unless mentioned in the HPI. Past Patient History - Infectious Disease Hx of Infectious Diseases: None - Past Medical History & Family History Past Medical History?: Yes - Past Social History Smoking Status: Never Smoked - CARDIAC Hx Hypertension: Yes - PULMONARY Hx Respiratory Disorders: No Other/Comment: lung bx r lower lobe, right lower lobectomy 09/04/2014 - NEUROLOGICAL Hx Neurological Disorder: No - HEENT Hx HEENT Problems: No - RENAL Hx Chronic Kidney Disease: No - ENDOCRINE/METABOLIC Hx Endocrine Disorders: No - HEMATOLOGICAL/ONCOLOGICAL Hx Anemia: Yes (blood transfusions) Hx Cancer: Yes Hx Chemotherapy: Yes Hx Metastesis: Yes - INTEGUMENTARY Hx Dermatological Problems: Yes Other/Comment: LEFT BREAST MASTECTOMY - MUSCULOSKELETAL/RHEUMATOLOGICAL Hx Musculoskeletal Disorders: Yes Hx Falls: Yes Hx Unsteady Gait: Yes (off balance unsteady at times) - GASTROINTESTINAL Other/Comment: breast ca and chemo - GENITOURINARY/GYNECOLOGICAL Hx Genitourinary Disorders: No - PSYCHIATRIC Hx Psychophysiologic Disorder: No Hx Substance Use: No - SURGICAL HISTORY Hx Surgeries: Yes Hx Mastectomy: Yes Hx Vascular Access Device: Yes Other/Comment: R sided port. - ANESTHESIA Hx Anesthesia: Yes Hx Anesthesia Reactions: No Hx Malignant Hyperthermia: No Meds Allergies/Adverse Reactions: Allergies Allergy/AdvReac Type Severity Reaction Status Date / Time No Known Allergies Allergy Verified 12/10/17 13:31 - Medications Medications: Current Medications Amlodipine Besylate (Norvasc) 5 mg PO DAILY [facility] Last Admin: 12/28/17 11:15 Dose: 5 mg Dexamethasone (Decadron) 4 mg PO BID [facility] Last Admin: 12/28/17 18:04 Dose: 4 mg Famotidine (Pepcid) 20 mg PO BID [facility] Last Admin: 12/28/17 18:04 Dose: 20 mg Potassium Chloride/Dextrose/Sod Cl (Potassium Chl 20 Meq In D5-1/2ns) 1,000 mls @ 80 mls/hr IV .[id number] [facility] Last Admin: 12/28/17 15:55 Dose: 80 mls/hr Levetiracetam (Keppra) 500 mg PO BID [facility] Last Admin: 12/28/17 18:04 Dose: 500 mg Ondansetron HCl (Zofran Inj) 4 mg IVP Q8H PRN PRN Reason: Nausea/Vomiting Oxycodone/Acetaminophen (Percocet 5/325 Mg Tab) 1 tab PO Q4 PRN PRN Reason: Pain, severe (8-10) Stop: 12/31/17 04:01 Polyethylene Glycol (Miralax) 17 gm PO DAILY [facility] Last Admin: 12/28/17 11:15 Dose: 17 gm Physical Exam - Head Exam Head Exam: ATRAUMATIC - Eye Exam Eye Exam: Normal appearance - ENT Exam ENT Exam: Mucous Membranes Dry - Respiratory Exam Respiratory Exam: NORMAL BREATHING PATTERN - Cardiovascular Exam Cardiovascular Exam: +S1, +S2 - GI/Abdominal Exam GI & Abdominal Exam: Normal Bowel Sounds - Extremities Exam Extremities exam: Positive for: normal inspection - Psychiatric Exam Psychiatric exam: Normal Affect, Normal Mood - Skin Skin Exam: Warm Results - Vital Signs Recent Vital Signs: Last Vital Signs Temp 97.4 F L 12/28/17 16:00 Pulse 70 12/28/17 16:00 Resp 20 12/28/17 16:00 BP 103/69 12/28/17 16:00 Pulse Ox 95 12/28/17 16:00 - Labs Result Diagrams: 12/28/17 14:16 12/28/17 14:16 Labs: Laboratory Results - last 24 hr 12/28/17 12/28/17 12/28/17 02:22 14:16 14:16 WBC 0.7 L* RBC 3.31 L Hgb 11.2 D Hct 33.7 L MCV 101.8 H MCH 33.6 H MCHC 33.0 RDW 18.5 H Plt Count 27 L* D MPV 8.7 Neut % (Auto) 57.4 Lymph % (Auto) 21.8 [place] % (Auto) 19.6 H Eos % (Auto) 0.7 Baso % (Auto) 0.5 Neut # (Auto) 0.4 L Lymph # (Auto) 0.2 L [place] # (Auto) 0.1 Eos # (Auto) 0.0 Baso # (Auto) 0.0 Sodium 137 Potassium 3.3 L Chloride 103 Carbon Dioxide 29 Anion Gap 9 L BUN 17 Creatinine 0.4 L Est GFR ( Amer) > 60 Est GFR (Non-Af Amer) > 60 Random Glucose 117 H Calcium 7.7 L Total Bilirubin 1.2 AST 23 ALT 30 Alkaline Phosphatase 70 Total Protein 5.8 L Albumin 3.0 L Globulin 2.8 Albumin/Globulin Ratio 1.1 Urine Color Yellow Urine Clarity Hazy Urine pH 6.0 Ur Specific [place] 1.024 Urine Protein Negative Urine Glucose (UA) Normal Urine Ketones Negative Urine Blood Negative Urine Nitrate Negative Urine Bilirubin Negative Urine Urobilinogen 4.0 H Ur Leukocyte Esterase Neg Urine WBC (Auto) 2 Urine RBC (Auto) 1 Ur Squamous Epith Cells 7 H Urine Bacteria Rare Hyaline Casts 3-5 H Assessment & Plan (1) Pancytopenia due to chemotherapy Assessment and Plan: severe neutropenia on Granix no currentl transfusion indication for anemia/thrombocytopenia repeat CBC in AM Status: Acute (2) Breast cancer Assessment and Plan: stage IV on salvage chemotherapy outpatient treatment Thank you for this interesting consult. Status: Chronic
[2017-12-29] MEDS: Potassium Ch 20mEq in D5-1/2NS 1,000 ML IV SCH ×4 (03:30→23:09)
[2017-12-29] MEDS: Oxycodone/Acetaminophen 5/325 mg Tab PO PRN (04:14)
[2017-12-29 07:53] LABS: BASO % 0.6 % (0.0-2.0); HEMOGLOBIN 10.6 g/dL (11.0-16.0); LYMPH # 0.2 K/uL (1.0-4.3); LYMPH % 26.4 % (20.0-40.0); MEAN CELL VOLUME 101.5 fL (81.0-99.0); MEAN CORPUSCULAR HEMOGLOBIN 34.4 pg (27.0-31.0); MEAN CORPUSCULAR HGB CONC 33.8 g/dL (33.0-37.0); MONO # 0.2 K/uL (0.0-0.8); MONO % 21.4 % (0.0-10.0); NEUT # 0.4 K/uL (1.8-7.0); NEUT % 51.6 % (50.0-75.0); NRBC % 0.2 % (0.0-2.0); RBC 3.09 Mil/uL (3.80-5.20); RED CELL DISTRIBUTION WIDTH 18.2 % (11.5-14.5)
[2017-12-29 07:59] LABS: PLATELET COUNT 23 K/uL (130-400); WHITE BLOOD COUNT 0.9 K/uL (4.8-10.8)
[2017-12-29 08:06] LABS: BLOOD UREA NITROGEN 16 mg/dL (7-17); CALCIUM 7.6 mg/dl (8.6-10.4); GFR AFRICAN-AMERICAN > 60; GFR NON-AFRICAN AMERICAN > 60
[2017-12-29 09:17] LABS: BANDS 1 % (0-2); LYMPHOCYTE 23 % (20-40); MONOCYTE 35 % (0-10); NEUTROPHIL 41 % (50-75); TOTAL CELLS COUNTED 100
[2017-12-29 09:18] LABS: ANISOCYTOSIS SLIGHT; PLATELET ESTIMATE MARKEDLY DECREASED (NORMAL)
[2017-12-29 09:19] LABS: HYPOCHROMIC SLIGHT
[2017-12-29 09:21] LABS: POLYCHROMIC SLIGHT
[2017-12-29] MEDS: levETIRAcetam 100 mg/ml (5ml) Oral Syringe PO SCH ×2 (09:36→18:05)
[2017-12-29] MEDS: POLYETHYLENE GLYCOL 3350 17 GM/Dose PACKET PO SCH (09:37)
--- NOTE | 2017-12-29 12:46 | CP.PCM.PN ---
Subjective - Date & Time of Evaluation Date of Evaluation: 12/29/17 Time of Evaluation: 08:20 - Subjective Subjective: clinically same Objective - Vital Signs/Intake and Output Vital Signs (last 24 hours): Temp Pulse Resp BP Pulse Ox 97.2 F L 62 20 134/83 96 12/29/17 07:59 12/29/17 07:59 12/29/17 07:59 12/29/17 07:59 12/29/17 07:59 Intake and Output: 12/29/17 12/29/17 06:59 18:59 Intake Total 740 690 Output Total 0 Balance 740 690 - Medications Medications: Current Medications Amlodipine Besylate (Norvasc) 5 mg PO DAILY [facility] Last Admin: 12/29/17 09:36 Dose: 5 mg Dexamethasone (Decadron) 4 mg PO BID [facility] Last Admin: 12/29/17 09:37 Dose: 4 mg Famotidine (Pepcid) 20 mg PO BID [facility] Last Admin: 12/29/17 09:39 Dose: 20 mg Potassium Chloride/Dextrose/Sod Cl (Potassium Chl 20 Meq In D5-1/2ns) 1,000 mls @ 80 mls/hr IV .[id number] [facility] Last Admin: 12/29/17 09:38 Dose: 80 mls/hr Levetiracetam (Keppra) 500 mg PO BID [facility] Last Admin: 12/29/17 09:36 Dose: 500 mg Ondansetron HCl (Zofran Inj) 4 mg IVP Q8H PRN PRN Reason: Nausea/Vomiting Oxycodone/Acetaminophen (Percocet 5/325 Mg Tab) 1 tab PO Q4 PRN PRN Reason: Pain, severe (8-10) Stop: 12/31/17 04:01 Last Admin: 12/29/17 04:14 Dose: 1 tab Polyethylene Glycol (Miralax) 17 gm PO DAILY [facility] Last Admin: 12/29/17 09:37 Dose: 17 gm - Labs Labs: 12/29/17 07:17 12/29/17 07:17 - Constitutional Appears: Well - Head Exam Head Exam: ATRAUMATIC, NORMAL INSPECTION, NORMOCEPHALIC - Eye Exam Eye Exam: EOMI, Normal appearance, PERRL Pupil Exam: NORMAL ACCOMODATION, PERRL - ENT Exam ENT Exam: Mucous Membranes Moist, Normal Exam - Neck Exam Neck Exam: Full ROM, Normal Inspection. absent: Lymphadenopathy - Respiratory Exam Respiratory Exam: Decreased Breath Sounds - Cardiovascular Exam Cardiovascular Exam: REGULAR RHYTHM, +S1, +S2 - GI/Abdominal Exam GI & Abdominal Exam: Soft, Diminished Bowel Sounds - Rectal Exam Rectal Exam: Deferred
--- NOTE | 2017-12-29 20:34 | CP.PCM.PN ---
Subjective - Date & Time of Evaluation Date of Evaluation: 12/29/17 Time of Evaluation: 18:30 - Subjective Subjective: Feels tired Objective - Vital Signs/Intake and Output Vital Signs (last 24 hours): Temp Pulse Resp BP Pulse Ox 97.9 F 76 20 120/60 100 12/29/17 16:00 12/29/17 16:00 12/29/17 16:00 12/29/17 16:00 12/29/17 16:00 Intake and Output: 12/29/17 12/30/17 18:59 06:59 Intake Total 1580 Balance 1580 - Medications Medications: Current Medications Amlodipine Besylate (Norvasc) 5 mg PO DAILY [facility] Last Admin: 12/29/17 09:36 Dose: 5 mg Dexamethasone (Decadron) 4 mg PO BID [facility] Last Admin: 12/29/17 18:05 Dose: 4 mg Famotidine (Pepcid) 20 mg PO BID [facility] Last Admin: 12/29/17 18:05 Dose: 20 mg Potassium Chloride/Dextrose/Sod Cl (Potassium Chl 20 Meq In D5-1/2ns) 1,000 mls @ 80 mls/hr IV .[id number] [facility] Last Admin: 12/29/17 16:30 Dose: Not Given Levetiracetam (Keppra) 500 mg PO BID [facility] Last Admin: 12/29/17 18:05 Dose: 500 mg Ondansetron HCl (Zofran Inj) 4 mg IVP Q8H PRN PRN Reason: Nausea/Vomiting Oxycodone/Acetaminophen (Percocet 5/325 Mg Tab) 1 tab PO Q4 PRN PRN Reason: Pain, severe (8-10) Stop: 12/31/17 04:01 Last Admin: 12/29/17 04:14 Dose: 1 tab Polyethylene Glycol (Miralax) 17 gm PO DAILY [facility] Last Admin: 12/29/17 09:37 Dose: 17 gm - Labs Labs: 12/29/17 07:17 12/29/17 07:17 - Head Exam Head Exam: ATRAUMATIC - Eye Exam Eye Exam: Normal appearance - ENT Exam ENT Exam: Mucous Membranes Dry - Respiratory Exam Respiratory Exam: NORMAL BREATHING PATTERN - Cardiovascular Exam Cardiovascular Exam: +S1, +S2 - GI/Abdominal Exam GI & Abdominal Exam: Normal Bowel Sounds Assessment and Plan (1) Pancytopenia due to chemotherapy Assessment & Plan: WBC improving; on granix no current transfusion indication Status: Acute (2) Breast cancer Assessment & Plan: stage IV outpatient salvage treatment Status: Chronic
[2017-12-30] MEDS: Oxycodone/Acetaminophen 5/325 mg Tab PO PRN ×2 (04:17→11:48)
[2017-12-30 08:02] LABS: BLOOD UREA NITROGEN 17 mg/dL (7-17); CALCIUM 8.3 mg/dl (8.6-10.4); GFR AFRICAN-AMERICAN > 60; GFR NON-AFRICAN AMERICAN > 60
[2017-12-30 10:32] LABS: BASO % 0.3 % (0.0-2.0); EOS % 0.2 % (0.0-4.0); HEMOGLOBIN 11.1 g/dL (11.0-16.0); LYMPH # 0.4 K/uL (1.0-4.3); LYMPH % 14.9 % (20.0-40.0); MEAN CORPUSCULAR HEMOGLOBIN 33.7 pg (27.0-31.0); MEAN CORPUSCULAR HGB CONC 33.4 g/dL (33.0-37.0); MEAN PLATELET VOLUME 8.2 fL (7.2-11.7); MONO # 0.5 K/uL (0.0-0.8); MONO % 16.4 % (0.0-10.0); NEUT % 68.2 % (50.0-75.0); NRBC % 0.6 % (0.0-2.0); RBC 3.29 Mil/uL (3.80-5.20); RED CELL DISTRIBUTION WIDTH 18.6 % (11.5-14.5); WHITE BLOOD COUNT 2.9 K/uL (4.8-10.8)
[2017-12-30 10:37] LABS: PLATELET COUNT 23 K/uL (130-400)
[2017-12-30] MEDS: POLYETHYLENE GLYCOL 3350 17 GM/Dose PACKET PO SCH (11:15)
[2017-12-30] MEDS: levETIRAcetam 100 mg/ml (5ml) Oral Syringe PO SCH ×2 (11:16→17:51)
[2017-12-30 13:02] LABS: BANDS 14 % (0-2); LYMPHOCYTE 19 % (20-40); MONOCYTE 25 % (0-10); NEUTROPHIL 42 % (50-75); TOTAL CELLS COUNTED 100
[2017-12-30 13:03] LABS: ANISOCYTOSIS MODERATE; PLATELET ESTIMATE MARKEDLY DECREASED (NORMAL)
[2017-12-30] MEDS: Ciprofloxacin 400mg/200ml D5W 400 MG/200 ML BAG IVPB SCH (14:34)
[2017-12-30] MEDS ORDERED: Vancomycin 1 gm/NS 200 ml 1 GM/200 ML BAG IVPB ONE (16:00)
--- NOTE | 2017-12-30 18:24 | CP.PCM.PN ---
Subjective - Date & Time of Evaluation Date of Evaluation: 12/30/17 Time of Evaluation: 08:20 - Subjective Subjective: clinically same Objective - Vital Signs/Intake and Output Vital Signs (last 24 hours): Temp Pulse Resp BP Pulse Ox 97.9 F 74 20 108/73 98 12/30/17 16:00 12/30/17 16:00 12/30/17 16:00 12/30/17 16:00 12/30/17 16:00 Intake and Output: 12/30/17 12/30/17 06:59 18:59 Intake Total 880 1740 Output Total 1 1 Balance 879 1739 - Medications Medications: Current Medications Amlodipine Besylate (Norvasc) 5 mg PO DAILY [facility] Last Admin: 12/30/17 11:16 Dose: 5 mg Dexamethasone (Decadron) 4 mg PO BID [facility] Last Admin: 12/30/17 17:51 Dose: 4 mg Famotidine (Pepcid) 20 mg PO BID [facility] Last Admin: 12/30/17 17:51 Dose: 20 mg Ciprofloxacin (Cipro 400mg/200ml Dsw) 400 mg in 200 mls @ 133 mls/hr IVPB Q12H [facility] Last Admin: 12/30/17 14:34 Dose: 133 mls/hr Levetiracetam (Keppra) 500 mg PO BID [facility] Last Admin: 12/30/17 17:51 Dose: 500 mg Ondansetron HCl (Zofran Inj) 4 mg IVP Q8H PRN PRN Reason: Nausea/Vomiting Oxycodone/Acetaminophen (Percocet 5/325 Mg Tab) 1 tab PO Q4 PRN PRN Reason: Pain, severe (8-10) Stop: 12/31/17 04:01 Last Admin: 12/30/17 11:48 Dose: 1 tab Polyethylene Glycol (Miralax) 17 gm PO DAILY [facility] Last Admin: 12/30/17 11:15 Dose: 17 gm - Labs Labs: 12/30/17 10:22 12/30/17 07:16 - Constitutional Appears: Well - Head Exam Head Exam: ATRAUMATIC, NORMAL INSPECTION, NORMOCEPHALIC - Eye Exam Eye Exam: EOMI, Normal appearance, PERRL Pupil Exam: NORMAL ACCOMODATION, PERRL - ENT Exam ENT Exam: Mucous Membranes Moist, Normal Exam - Neck Exam Neck Exam: Full ROM, Normal Inspection. absent: Lymphadenopathy - Respiratory Exam Respiratory Exam: Decreased Breath Sounds - Cardiovascular Exam Cardiovascular Exam: REGULAR RHYTHM, +S1, +S2 - GI/Abdominal Exam GI & Abdominal Exam: Soft, Diminished Bowel Sounds - Rectal Exam Rectal Exam: Deferred
--- NOTE | 2017-12-30 18:33 | CP.PCM.CON ---
History of Present Illness - History of Present Illness History of Present Illness: DICTATED Past Patient History - Infectious Disease Hx of Infectious Diseases: None - Past Medical History & Family History Past Medical History?: Yes - Past Social History Smoking Status: Never Smoked - CARDIAC Hx Hypertension: Yes - PULMONARY Hx Respiratory Disorders: No Other/Comment: lung bx r lower lobe, right lower lobectomy 09/04/2014 - NEUROLOGICAL Hx Neurological Disorder: No - HEENT Hx HEENT Problems: No - RENAL Hx Chronic Kidney Disease: No - ENDOCRINE/METABOLIC Hx Endocrine Disorders: No - HEMATOLOGICAL/ONCOLOGICAL Hx Anemia: Yes (blood transfusions) Hx Cancer: Yes Hx Chemotherapy: Yes Hx Metastesis: Yes - INTEGUMENTARY Hx Dermatological Problems: Yes Other/Comment: LEFT BREAST MASTECTOMY - MUSCULOSKELETAL/RHEUMATOLOGICAL Hx Musculoskeletal Disorders: Yes Hx Falls: Yes Hx Unsteady Gait: Yes (off balance unsteady at times) - GASTROINTESTINAL Other/Comment: breast ca and chemo - GENITOURINARY/GYNECOLOGICAL Hx Genitourinary Disorders: No - PSYCHIATRIC Hx Psychophysiologic Disorder: No Hx Substance Use: No - SURGICAL HISTORY Hx Surgeries: Yes Hx Mastectomy: Yes Hx Vascular Access Device: Yes Other/Comment: R sided port. - ANESTHESIA Hx Anesthesia: Yes Hx Anesthesia Reactions: No Hx Malignant Hyperthermia: No Meds Allergies/Adverse Reactions: Allergies Allergy/AdvReac Type Severity Reaction Status Date / Time No Known Allergies Allergy Verified 12/10/17 13:31 - Medications Medications: Current Medications Amlodipine Besylate (Norvasc) 5 mg PO DAILY [facility] Last Admin: 12/30/17 11:16 Dose: 5 mg Dexamethasone (Decadron) 4 mg PO BID [facility] Last Admin: 12/30/17 17:51 Dose: 4 mg Famotidine (Pepcid) 20 mg PO BID [facility] Last Admin: 12/30/17 17:51 Dose: 20 mg Ciprofloxacin (Cipro 400mg/200ml Dsw) 400 mg in 200 mls @ 133 mls/hr IVPB Q12H [facility] Last Admin: 12/30/17 14:34 Dose: 133 mls/hr Levetiracetam (Keppra) 500 mg PO BID [facility] Last Admin: 12/30/17 17:51 Dose: 500 mg Ondansetron HCl (Zofran Inj) 4 mg IVP Q8H PRN PRN Reason: Nausea/Vomiting Oxycodone/Acetaminophen (Percocet 5/325 Mg Tab) 1 tab PO Q4 PRN PRN Reason: Pain, severe (8-10) Stop: 12/31/17 04:01 Last Admin: 12/30/17 11:48 Dose: 1 tab Polyethylene Glycol (Miralax) 17 gm PO DAILY [facility] Last Admin: 12/30/17 11:15 Dose: 17 gm Results - Vital Signs Recent Vital Signs: Last Vital Signs Temp 97.9 F 12/30/17 16:00 Pulse 74 12/30/17 16:00 Resp 20 12/30/17 16:00 BP 108/73 12/30/17 16:00 Pulse Ox 98 12/30/17 16:00 - Labs Result Diagrams: 12/30/17 10:22 12/30/17 07:16 Labs: Laboratory Results - last 24 hr 12/30/17 12/30/17 07:16 10:22 WBC 2.9 L D RBC 3.29 L Hgb 11.1 Hct 33.2 L MCV 101.0 H MCH 33.7 H MCHC 33.4 RDW 18.6 H Plt Count 23 L* MPV 8.2 Neut % (Auto) 68.2 Lymph % (Auto) 14.9 L Ray % (Auto) 16.4 H Eos % (Auto) 0.2 Baso % (Auto) 0.3 Neut # (Auto) 2.0 Lymph # (Auto) 0.4 L [place] # (Auto) 0.5 Eos # (Auto) 0.0 Baso # (Auto) 0.0 Neutrophils % (Manual) 42 L Band Neutrophils % 14 H* Lymphocytes % (Manual) 19 L Monocytes % (Manual) 25 H Platelet Estimate Markedly decreased L Anisocytosis (manual) Moderate Macrocytosis (manual) Moderate Sodium 137 Potassium 4.1 Chloride 102 Carbon Dioxide 27 Anion Gap 11 BUN 17 Creatinine 0.5 L Est GFR ( Amer) > 60 Est GFR (Non-Af Amer) > 60 Random Glucose 160 H Calcium 8.3 L
--- NOTE | 2017-12-30 19:44 | CP.PCM.PN ---
Subjective - Date & Time of Evaluation Date of Evaluation: 12/30/17 Time of Evaluation: 18:30 - Subjective Subjective: Feels tired family at bedside Objective - Vital Signs/Intake and Output Vital Signs (last 24 hours): Temp Pulse Resp BP Pulse Ox 97.9 F 74 20 108/73 98 12/30/17 16:00 12/30/17 16:00 12/30/17 16:00 12/30/17 16:00 12/30/17 16:00 Intake and Output: 12/30/17 12/31/17 18:59 06:59 Intake Total 1740 Output Total 1 Balance 1739 - Medications Medications: Current Medications Amlodipine Besylate (Norvasc) 5 mg PO DAILY [facility] Last Admin: 12/30/17 11:16 Dose: 5 mg Dexamethasone (Decadron) 4 mg PO BID [facility] Last Admin: 12/30/17 17:51 Dose: 4 mg Famotidine (Pepcid) 20 mg PO BID [facility] Last Admin: 12/30/17 17:51 Dose: 20 mg Ciprofloxacin (Cipro 400mg/200ml Dsw) 400 mg in 200 mls @ 133 mls/hr IVPB Q12H [facility] Last Admin: 12/30/17 14:34 Dose: 133 mls/hr Levetiracetam (Keppra) 500 mg PO BID [facility] Last Admin: 12/30/17 17:51 Dose: 500 mg Ondansetron HCl (Zofran Inj) 4 mg IVP Q8H PRN PRN Reason: Nausea/Vomiting Oxycodone/Acetaminophen (Percocet 5/325 Mg Tab) 1 tab PO Q4 PRN PRN Reason: Pain, severe (8-10) Stop: 12/31/17 04:01 Last Admin: 12/30/17 11:48 Dose: 1 tab Polyethylene Glycol (Miralax) 17 gm PO DAILY [facility] Last Admin: 12/30/17 11:15 Dose: 17 gm - Labs Labs: 12/30/17 10:22 12/30/17 07:16 - Head Exam Head Exam: ATRAUMATIC - Eye Exam Eye Exam: Normal appearance - ENT Exam ENT Exam: Mucous Membranes Dry - Respiratory Exam Respiratory Exam: NORMAL BREATHING PATTERN - Cardiovascular Exam Cardiovascular Exam: +S1, +S2 - GI/Abdominal Exam GI & Abdominal Exam: Normal Bowel Sounds - Extremities Exam Extremities Exam: Normal Inspection Assessment and Plan (1) Pancytopenia due to chemotherapy Assessment & Plan: improving WBC s/p granix no current transfusion indication Status: Acute (2) Breast cancer Assessment & Plan: stage IV outpatient treatment Status: Chronic
[2017-12-31] MEDS: Ciprofloxacin 400mg/200ml D5W 400 MG/200 ML BAG IVPB SCH ×2 (01:35→14:28)
--- NOTE | 2017-12-31 05:27 | CON ---
DATE: INFECTIOUS DISEASE CONSULT REQUESTED BY: Vero Benjamin MD HISTORY OF PRESENT ILLNESS: This patient is a 52-year-old female. She has been having radiation and came in with neck pain for 2 days duration. She has a breast cancer metastatic to the lung and also has been getting radiation therapy in the neck. According to Dr. Real, she was having generalized weakness, poor appetite, and was admitted here. I am asked to see her for IV antibiotics. She is barely talking. I asked her about headache, fever, cough, abdominal pain, she denied most of the things, but she is not verbalizing much and she was lying there with weakness and not moving much. She was admitted with a temperature of 98.3, pulse 82, blood pressure 111/81, and saturation 98%. PAST MEDICAL HISTORY: Significant for hypertension and breast cancer. There is history of previous surgeries present. She does not smoke or drink. No family history present. She was here before, has a Port-A-Cath which was inserted in 2013, and she had robotic-assisted procedure in 2013. She had lobectomy of lung in 2013 and so she had a lot of things done in 2013 it seems and she had a percutaneous lung biopsy on 03/15/2014. At this time, she was also seen by Dr. Real who raised that she has past medical history of stage IV blood cancer and therefore she has lung, lymph node, bone marrow, bone and brain metastasis and recently had cervical neck compression fracture, status post radiation. She is on salvage chemotherapy and brought in with progressive fatigue and poor appetite. SOCIAL HISTORY: Negative for smoking or drinking. FAMILY HISTORY: Noncontributory. REVIEW OF SYSTEMS: Past medical history was reviewed from the chart, has history of hypertension. She had a lung biopsy and right lobe lobectomy. She has generalized weakness. No neurological disorder. She has no kidney problems. No diabetes. She has history of anemia and cancer and has chemotherapy and medications, and she has left breast mastectomy and falls, unsteady gait because of the metastasis to the brain. She has breast cancer and on chemo. She has a right-sided Port-A-Cath on surgery. She has had anesthesia in the past. ALLERGIES: SHE IS NOT ALLERGIC TO ANY MEDICINE. MEDICATIONS: Include amlodipine; dexamethasone, she is on 4 mg p.o. b.i.d.; famotidine; potassium chloride; Keppra; Zofran; Percocet; MiraLax. She was given one dose of vancomycin today and she is on Cipro, Norvasc, Decadron, Pepcid, Keppra, Zofran, Percocet and MiraLax here, and we gave one dose of vancomycin and she is on Cipro. PHYSICAL EXAMINATION: VITAL SIGNS: On examination, I find her temperature is 97.9, pulse 74, blood pressure 108/73, respirations are 20, and saturation is 98%. GENERAL: She appears weak. HEENT: Head is atraumatic, normocephalic. She has alopecia. Pupils are reacting to light and mucous membrane is dry. NECK: Supple. LUNGS: Clear. No crackles or rales present. HEART: S1 and S2 are regular. No murmurs appreciated. ABDOMEN: Soft, nontender. No guarding. No rigidity present. EXTREMITIES: Have no edema, clubbing or cyanosis. NEURO: She seems to have a flat affect. LABORATORY DATA: Her lab showed that she came with a WBC of 0.7, hemoglobin 11.2, hematocrit 33.7 and platelets were only 27. Sodium is 137, potassium 3.3, chloride is 103, BUN is 17, creatinine 0.4, and glucose is 117. Urine culture grew Strep agalactiae and Klebsiella and Klebsiella is ESBL negative and is Cipro sensitive. White count today is 2.9, hemoglobin 11.1, hematocrit 33.2, platelets remained 23 with bands are 42, lymphs 14, monocytes are 19 and platelets are markedly decreased. She has a chest x-ray done. Chest x-ray shows sclerosis of the coracoid, glenoid and lateral margin of the right scapula plus possible Paget's disease versus sclerotic metastasis. She has no acute infiltrate. She is status post radiation. She suffers from generalized weakness. She came in pancytopenic. She has urinary tract infection, and she also is pancytopenic and has stage IV breast cancer and status post radiation. We will follow. We will continue with Cipro. We gave her one dose of vancomycin for now and we will monitor her labs tomorrow. She has Klebsiella, but it is sensitive to Cipro and we are continuing that. Bina Amaro MD [facility] # [id number]
[2017-12-31 07:56] LABS: BASO % 0.1 % (0.0-2.0); EOS % 0.2 % (0.0-4.0); HEMOGLOBIN 12.1 g/dL (11.0-16.0); LYMPH # 0.4 K/uL (1.0-4.3); MEAN CELL VOLUME 101.8 fL (81.0-99.0); MEAN CORPUSCULAR HEMOGLOBIN 33.9 pg (27.0-31.0); MEAN CORPUSCULAR HGB CONC 33.3 g/dL (33.0-37.0); MEAN PLATELET VOLUME 9.6 fL (7.2-11.7); MONO # 0.3 K/uL (0.0-0.8); MONO % 5.7 % (0.0-10.0); NEUT # 4.6 K/uL (1.8-7.0); NRBC % 1.7 % (0.0-2.0); RBC 3.56 Mil/uL (3.80-5.20); RED CELL DISTRIBUTION WIDTH 18.3 % (11.5-14.5); WHITE BLOOD COUNT 5.3 K/uL (4.8-10.8)
[2017-12-31 07:59] LABS: ALB/GLOB RATIO 1.1 (1.0-2.1); ALBUMIN 3.4 g/dL (3.5-5.0); ALT/SGPT 36 U/L (9-52); AST/SGOT 20 U/L (14-36); BLOOD UREA NITROGEN 17 mg/dL (7-17); CALCIUM 8.8 mg/dl (8.6-10.4); GFR AFRICAN-AMERICAN > 60; GFR NON-AFRICAN AMERICAN > 60
[2017-12-31 08:07] LABS: PLATELET COUNT 15 K/uL (130-400)
[2017-12-31 09:20] LABS: BANDS 33 % (0-2); LYMPHOCYTE 11 % (20-40); MONOCYTE 20 % (0-10); NEUTROPHIL 36 % (50-75); NUCLEATED RED BLOOD CELL 2 % (0-0); TOTAL CELLS COUNTED 100
[2017-12-31 09:21] LABS: ANISOCYTOSIS SLIGHT; HYPOCHROMIC SLIGHT; LARGE PLATELETS PRESENT; MICROCYTOSIS SLIGHT; OVALOCYTES SLIGHT; PLATELET ESTIMATE MARKEDLY DECREASED (NORMAL); POIKILOCYTOSIS SLIGHT
[2017-12-31] MEDS: levETIRAcetam 100 mg/ml (5ml) Oral Syringe PO SCH ×2 (10:51→18:22)
[2017-12-31] MEDS: POLYETHYLENE GLYCOL 3350 17 GM/Dose PACKET PO SCH ×2 (10:51→14:28)
--- NOTE | 2017-12-31 17:27 | CP.PCM.PN ---
Subjective - Date & Time of Evaluation Date of Evaluation: 12/31/17 Time of Evaluation: 08:00 - Subjective Subjective: cllinically end stage Objective - Vital Signs/Intake and Output Vital Signs (last 24 hours): Temp Pulse Resp BP Pulse Ox 97.6 F 67 20 144/91 H 98 12/31/17 09:08 12/31/17 09:08 12/31/17 09:08 12/31/17 09:08 12/31/17 09:08 Intake and Output: 12/31/17 12/31/17 06:59 18:59 Intake Total 990 350 Balance 990 350 - Medications Medications: Current Medications Amlodipine Besylate (Norvasc) 5 mg PO DAILY [facility] Last Admin: 12/31/17 10:51 Dose: 5 mg Dexamethasone (Decadron) 4 mg PO BID [facility] Last Admin: 12/31/17 10:50 Dose: 4 mg Famotidine (Pepcid) 20 mg PO BID [facility] Last Admin: 12/31/17 10:51 Dose: 20 mg Ciprofloxacin (Cipro 400mg/200ml Dsw) 400 mg in 200 mls @ 133 mls/hr IVPB Q12H [facility] Last Admin: 12/31/17 14:28 Dose: 133 mls/hr Levetiracetam (Keppra) 500 mg PO BID [facility] Last Admin: 12/31/17 10:51 Dose: 500 mg Ondansetron HCl (Zofran Inj) 4 mg IVP Q8H PRN PRN Reason: Nausea/Vomiting Polyethylene Glycol (Miralax) 17 gm PO DAILY [facility] [place] Last Admin: 12/31/17 14:28 Dose: Not Given - Labs Labs: 12/31/17 07:13 12/31/17 07:13 - Constitutional Appears: Well - Head Exam Head Exam: ATRAUMATIC, NORMAL INSPECTION, NORMOCEPHALIC - Eye Exam Eye Exam: EOMI, Normal appearance, PERRL Pupil Exam: NORMAL ACCOMODATION, PERRL - ENT Exam ENT Exam: Mucous Membranes Moist, Normal Exam - Neck Exam Neck Exam: Full ROM, Normal Inspection. absent: Lymphadenopathy - Respiratory Exam Respiratory Exam: Decreased Breath Sounds - Cardiovascular Exam Cardiovascular Exam: REGULAR RHYTHM, +S1, +S2 - GI/Abdominal Exam GI & Abdominal Exam: Soft, Diminished Bowel Sounds - Rectal Exam Rectal Exam: Deferred Assessment and Plan - Assessment and Plan (Free Text) Plan: confused She did stage IV cancer I spoke to the mother and explained in detail and also advised him to speak to Dr. latrell Prabhakar for the different option as patient has stage IV cancer Also spoke to the bowel bladder yesterday IV Cipro ID consultation
--- NOTE | 2017-12-31 21:07 | CP.PCM.PN ---
Subjective - Date & Time of Evaluation Date of Evaluation: 12/31/17 Time of Evaluation: 20:00 - Subjective Subjective: Remains intermittently confused, family at bedside. Family attempting to get children from [place] to come. Objective - Vital Signs/Intake and Output Vital Signs (last 24 hours): Temp Pulse Resp BP Pulse Ox 97.6 F 67 20 144/91 H 98 12/31/17 09:08 12/31/17 09:08 12/31/17 09:08 12/31/17 09:08 12/31/17 09:08 Intake and Output: 12/31/17 01/01/18 18:59 06:59 Intake Total 350 Balance 350 - Medications Medications: Current Medications Amlodipine Besylate (Norvasc) 5 mg PO DAILY [facility] Last Admin: 12/31/17 10:51 Dose: 5 mg Dexamethasone (Decadron) 4 mg PO BID [facility] Last Admin: 12/31/17 18:22 Dose: 4 mg Famotidine (Pepcid) 20 mg PO BID [facility] Last Admin: 12/31/17 18:22 Dose: 20 mg Ciprofloxacin (Cipro 400mg/200ml Dsw) 400 mg in 200 mls @ 133 mls/hr IVPB Q12H [facility] Last Admin: 12/31/17 14:28 Dose: 133 mls/hr Levetiracetam (Keppra) 500 mg PO BID [facility] Last Admin: 12/31/17 18:22 Dose: 500 mg Ondansetron HCl (Zofran Inj) 4 mg IVP Q8H PRN PRN Reason: Nausea/Vomiting Polyethylene Glycol (Miralax) 17 gm PO DAILY [facility] Last Admin: 12/31/17 14:28 Dose: Not Given - Labs Labs: 12/31/17 07:13 12/31/17 07:13 - Head Exam Head Exam: ATRAUMATIC - Eye Exam Eye Exam: Normal appearance - ENT Exam ENT Exam: Mucous Membranes Dry - Respiratory Exam Respiratory Exam: NORMAL BREATHING PATTERN - Cardiovascular Exam Cardiovascular Exam: +S1, +S2 - GI/Abdominal Exam GI & Abdominal Exam: Normal Bowel Sounds Assessment and Plan (1) Pancytopenia due to chemotherapy Assessment & Plan: for platelet transfusion Status: Acute (2) Breast cancer Assessment & Plan: stage IV supportive care discussed incurable nature of disease to family; they want the patients children from [facility] to come. Status: Chronic
--- NOTE | 2017-12-31 21:22 | CP.PCM.PN ---
Subjective - Date & Time of Evaluation Date of Evaluation: 12/31/17 Time of Evaluation: 06:30 - Subjective Subjective: dictated Objective - Vital Signs/Intake and Output Vital Signs (last 24 hours): Temp Pulse Resp BP Pulse Ox 97.6 F 67 20 144/91 H 98 12/31/17 09:08 12/31/17 09:08 12/31/17 09:08 12/31/17 09:08 12/31/17 09:08 Intake and Output: 12/31/17 01/01/18 18:59 06:59 Intake Total 350 Balance 350 - Medications Medications: Current Medications Amlodipine Besylate (Norvasc) 5 mg PO DAILY [facility] Last Admin: 12/31/17 10:51 Dose: 5 mg Dexamethasone (Decadron) 4 mg PO BID [facility] Last Admin: 12/31/17 18:22 Dose: 4 mg Famotidine (Pepcid) 20 mg PO BID [facility] Last Admin: 12/31/17 18:22 Dose: 20 mg Ciprofloxacin (Cipro 400mg/200ml Dsw) 400 mg in 200 mls @ 133 mls/hr IVPB Q12H [facility] Last Admin: 12/31/17 14:28 Dose: 133 mls/hr Levetiracetam (Keppra) 500 mg PO BID [facility] Last Admin: 12/31/17 18:22 Dose: 500 mg Ondansetron HCl (Zofran Inj) 4 mg IVP Q8H PRN PRN Reason: Nausea/Vomiting Polyethylene Glycol (Miralax) 17 gm PO DAILY [facility] Last Admin: 12/31/17 14:28 Dose: Not Given - Labs Labs: 12/31/17 07:13 12/31/17 07:13
--- NOTE | 2018-01-01 00:46 | PN ---
DATE: 12/31/2017 SUBJECTIVE: The patient does not talk much. She drank some Ensure today. ____ with open eyes remains without much communication, but she appears to be in no acute respiratory distress. PHYSICAL EXAMINATION: VITAL SIGNS: T-max 97.6, pulse 67, blood pressure 144/91, respirations are 20. GENERAL: She is all curled up in bed. LUNGS: Clear. HEART: S1, S2 is regular. ABDOMEN: Soft. Nontender. No guarding. No rigidity present. EXTREMITIES: No edema. She has a right-sided Port-A-Cath. LABORATORY DATA: White count is 5.3, hemoglobin 12.1, hematocrit 36.3, platelet count is just 15, is low from 23 and bands are 33. Chemistry shows BUN is 17, creatinine 0.7. Culture, urine showed and Klebsiella. ASSESSMENT AND PLAN: The patient is on Cipro so we will continue that for now. We will see what Dr. Real has to say. She has breast cancer with metastasis and pancytopenia due to chemotherapy and patient is for platelets transfusion and we will follow. She has urinary tract infection. Bina Amaro MD
[2018-01-01] MEDS: Ciprofloxacin 400mg/200ml D5W 400 MG/200 ML BAG IVPB SCH ×2 (02:15→14:50)
[2018-01-01] MEDS: levETIRAcetam 100 mg/ml (5ml) Oral Syringe PO SCH ×2 (09:08→09:50)
[2018-01-01] MEDS: POLYETHYLENE GLYCOL 3350 17 GM/Dose PACKET PO SCH ×2 (09:08→09:51)
[2018-01-01] MEDS ORDERED: levETIRAcetam 500 MG in Sodium Chloride 0.9% 100 ML IVPB SCH (11:00)
--- NOTE | 2018-01-01 16:22 | CP.PCM.PN ---
Subjective - Date & Time of Evaluation Date of Evaluation: 01/01/18 Time of Evaluation: 07:20 - Subjective Subjective: clinically same Objective - Vital Signs/Intake and Output Vital Signs (last 24 hours): Temp Pulse Resp BP Pulse Ox 98.1 F 78 20 100/58 L 100 01/01/18 07:35 01/01/18 07:35 01/01/18 07:35 01/01/18 07:35 01/01/18 07:35 Intake and Output: 01/01/18 01/01/18 06:59 18:59 Intake Total 902 580 Balance 902 580 - Medications Medications: Current Medications Amlodipine Besylate (Norvasc) 5 mg PO DAILY [facility] Last Admin: 01/01/18 09:08 Dose: Not Given Dexamethasone (Decadron Inj) 4 mg IVP BID [facility] Famotidine (Pepcid) 20 mg PO BID [facility] Last Admin: 01/01/18 09:52 Dose: Not Given Ciprofloxacin (Cipro 400mg/200ml Dsw) 400 mg in 200 mls @ 133 mls/hr IVPB Q12H [facility] Last Admin: 01/01/18 14:50 Dose: 133 mls/hr Levetiracetam 750 mg/ Sodium (Chloride) 107.5 mls @ 420 mls/hr IVPB BID [facility] Ondansetron HCl (Zofran Inj) 4 mg IVP Q8H PRN PRN Reason: Nausea/Vomiting Polyethylene Glycol (Miralax) 17 gm PO DAILY [facility] Last Admin: 01/01/18 09:51 Dose: Not Given - Labs Labs: 12/31/17 07:13 12/31/17 07:13 - Constitutional Appears: Well - Head Exam Head Exam: ATRAUMATIC, NORMAL INSPECTION, NORMOCEPHALIC - Eye Exam Eye Exam: EOMI, Normal appearance, PERRL Pupil Exam: NORMAL ACCOMODATION, PERRL - ENT Exam ENT Exam: Mucous Membranes Moist, Normal Exam - Neck Exam Neck Exam: Full ROM, Normal Inspection. absent: Lymphadenopathy - Respiratory Exam Respiratory Exam: Decreased Breath Sounds - Cardiovascular Exam Cardiovascular Exam: REGULAR RHYTHM, +S1, +S2 - GI/Abdominal Exam GI & Abdominal Exam: Soft, Diminished Bowel Sounds - Rectal Exam Rectal Exam: Deferred Assessment and Plan (1) Dehydration Status: Acute (2) Metastatic cancer Status: Acute (3) Pancytopenia due to chemotherapy Status: Acute (4) Acute encephalopathy Status: Acute (5) Anemia Status: Acute (6) Delirium Status: Acute (7) Leukocytosis Status: Acute (8) Neutropenia Status: Acute (9) Pancytopenia Status: Acute (10) Pathological fracture Status: Acute (11) Prophylactic measure Status: Acute (12) S/P lobectomy of lung Status: Acute (13) Severe anemia Status: Acute (14) Severe thrombocytopenia Status: Acute (15) Thrombocytopenia Status: Acute (16) Breast cancer Status: Chronic (17) HTN (hypertension) Status: Chronic - Assessment and Plan (Free Text) Plan: Long discussion done with the family Tino the brother Patient's advised that 3 daughters needs to screen for mammogram as well as 3 sister patient has stage IV breast cancer Continue IV antibiotic Poor prognosis Patient will go to the T Once patient is discharged spoke to the patient Disability form filled for the patient Spoke to the family and patient for more than 30 minutes
--- NOTE | 2018-01-01 18:55 | CP.PCM.PN ---
Subjective - Date & Time of Evaluation Date of Evaluation: 01/01/18 Time of Evaluation: 17:00 - Subjective Subjective: Cont. to be confused Objective - Vital Signs/Intake and Output Vital Signs (last 24 hours): Temp Pulse Resp BP Pulse Ox 97.4 F L 108 H 20 121/64 98 01/01/18 16:00 01/01/18 16:00 01/01/18 16:00 01/01/18 16:00 01/01/18 16:00 Intake and Output: 01/01/18 01/01/18 06:59 18:59 Intake Total 902 580 Balance 902 580 - Medications Medications: Current Medications Amlodipine Besylate (Norvasc) 5 mg PO DAILY [facility] Last Admin: 01/01/18 09:08 Dose: Not Given Dexamethasone (Decadron Inj) 4 mg IVP BID [facility] Famotidine (Pepcid) 20 mg PO BID [facility] Last Admin: 01/01/18 09:52 Dose: Not Given Ciprofloxacin (Cipro 400mg/200ml Dsw) 400 mg in 200 mls @ 133 mls/hr IVPB Q12H [facility] Last Admin: 01/01/18 14:50 Dose: 133 mls/hr Levetiracetam 750 mg/ Sodium (Chloride) 107.5 mls @ 420 mls/hr IVPB BID [facility] Ondansetron HCl (Zofran Inj) 4 mg IVP Q8H PRN PRN Reason: Nausea/Vomiting Polyethylene Glycol (Miralax) 17 gm PO DAILY [facility] Last Admin: 01/01/18 09:51 Dose: Not Given - Labs Labs: 12/31/17 07:13 12/31/17 07:13 - Head Exam Head Exam: ATRAUMATIC - Eye Exam Eye Exam: Normal appearance - ENT Exam ENT Exam: Mucous Membranes Dry - Respiratory Exam Respiratory Exam: NORMAL BREATHING PATTERN - Cardiovascular Exam Cardiovascular Exam: +S1, +S2 - GI/Abdominal Exam GI & Abdominal Exam: Normal Bowel Sounds - Extremities Exam Extremities Exam: Normal Inspection Assessment and Plan (1) Pancytopenia due to chemotherapy Assessment & Plan: given 1 bag platelets yesterday repeat CBC Status: Acute (2) Breast cancer Assessment & Plan: stage IV supportive care discussed at length with family family to try to arrange pts kids to come from [facility] Status: Chronic
[2018-01-01] MEDS: Dexamethasone 4 mg/1 ml IVP SCH (19:08)
[2018-01-02] MEDS: Ciprofloxacin 400mg/200ml D5W 400 MG/200 ML BAG IVPB SCH ×2 (01:25→14:27)
[2018-01-02 07:13] LABS: BASO % 0.4 % (0.0-2.0); HEMOGLOBIN 12.2 g/dL (11.0-16.0); LYMPH # 0.3 K/uL (1.0-4.3); LYMPH % 7.7 % (20.0-40.0); MEAN CELL VOLUME 101.7 fL (81.0-99.0); MEAN CORPUSCULAR HEMOGLOBIN 33.5 pg (27.0-31.0); MEAN PLATELET VOLUME 8.6 fL (7.2-11.7); MONO # 0.4 K/uL (0.0-0.8); MONO % 10.5 % (0.0-10.0); NEUT # 3.1 K/uL (1.8-7.0); NEUT % 81.4 % (50.0-75.0); NRBC % 3.3 % (0.0-2.0); RBC 3.64 Mil/uL (3.80-5.20); RED CELL DISTRIBUTION WIDTH 18.7 % (11.5-14.5); WHITE BLOOD COUNT 3.8 K/uL (4.8-10.8)
[2018-01-02 07:37] LABS: PLATELET COUNT 42 K/uL (130-400)
[2018-01-02 07:51] LABS: ALB/GLOB RATIO 1.1 (1.0-2.1); ALBUMIN 3.2 g/dL (3.5-5.0); ALT/SGPT 37 U/L (9-52); AST/SGOT 24 U/L (14-36); BLOOD UREA NITROGEN 28 mg/dL (7-17); CALCIUM 8.9 mg/dl (8.6-10.4); GFR AFRICAN-AMERICAN > 60; GFR NON-AFRICAN AMERICAN > 60; MAGNESIUM 1.5 mg/dL (1.6-2.3)
[2018-01-02 09:28] LABS: BANDS 8 % (0-2); LYMPHOCYTE 10 % (20-40); MONOCYTE 12 % (0-10); NEUTROPHIL 70 % (50-75); NUCLEATED RED BLOOD CELL 1 % (0-0); PLATELET ESTIMATE DECREASED (NORMAL); TOTAL CELLS COUNTED 100
[2018-01-02 09:29] LABS: ANISOCYTOSIS MODERATE; OVALOCYTES SLIGHT; POIKILOCYTOSIS SLIGHT; POLYCHROMIC SLIGHT; TOXIC GRANULATION PRESENT
[2018-01-02 09:30] LABS: HYPOCHROMIC SLIGHT
[2018-01-02 09:31] LABS: LARGE PLATELETS PRESENT; SCHISTOCYTES SLIGHT
[2018-01-02] MEDS: POLYETHYLENE GLYCOL 3350 17 GM/Dose PACKET PO SCH (11:18)
[2018-01-02] MEDS: Dexamethasone 4 mg/1 ml IVP SCH ×2 (11:27→17:57)
--- NOTE | 2018-01-02 14:22 | CP.PCM.PN ---
Subjective - Date & Time of Evaluation Date of Evaluation: 01/02/18 Time of Evaluation: 07:20 - Subjective Subjective: clinically same Objective - Vital Signs/Intake and Output Vital Signs (last 24 hours): Temp Pulse Resp BP Pulse Ox 97.3 F L 87 20 128/84 100 01/02/18 08:06 01/02/18 08:06 01/02/18 08:06 01/02/18 08:06 01/02/18 08:06 Intake and Output: 01/02/18 01/02/18 06:59 18:59 Intake Total 300 250 Balance 300 250 - Medications Medications: Current Medications Amlodipine Besylate (Norvasc) 5 mg PO DAILY [facility] Last Admin: 01/02/18 11:17 Dose: 5 mg Dexamethasone (Decadron Inj) 4 mg IVP BID [facility] Last Admin: 01/02/18 11:27 Dose: 4 mg Famotidine (Pepcid) 20 mg PO BID [facility] Last Admin: 01/02/18 11:18 Dose: 20 mg Ciprofloxacin (Cipro 400mg/200ml Dsw) 400 mg in 200 mls @ 133 mls/hr IVPB Q12H [facility] Last Admin: 01/02/18 01:25 Dose: 133 mls/hr Levetiracetam 750 mg/ Sodium (Chloride) 107.5 mls @ 420 mls/hr IVPB BID [facility] Last Admin: 01/02/18 11:18 Dose: 420 mls/hr Ondansetron HCl (Zofran Inj) 4 mg IVP Q8H PRN PRN Reason: Nausea/Vomiting Polyethylene Glycol (Miralax) 17 gm PO DAILY [facility] Last Admin: 01/02/18 11:18 Dose: 17 gm - Labs Labs: 01/02/18 07:01 01/02/18 07:01 - Constitutional Appears: Well - Head Exam Head Exam: ATRAUMATIC, NORMAL INSPECTION, NORMOCEPHALIC - Eye Exam Eye Exam: EOMI, Normal appearance, PERRL Pupil Exam: NORMAL ACCOMODATION, PERRL - ENT Exam ENT Exam: Mucous Membranes Moist, Normal Exam - Neck Exam Neck Exam: Full ROM, Normal Inspection. absent: Lymphadenopathy - Respiratory Exam Respiratory Exam: Decreased Breath Sounds - Cardiovascular Exam Cardiovascular Exam: REGULAR RHYTHM, +S1, +S2 - GI/Abdominal Exam GI & Abdominal Exam: Soft, Diminished Bowel Sounds - Rectal Exam Rectal Exam: Deferred Assessment and Plan (1) Dehydration Status: Acute (2) Metastatic cancer Status: Acute (3) Pancytopenia due to chemotherapy Status: Acute (4) Acute encephalopathy Status: Acute (5) Anemia Status: Acute (6) Delirium Status: Acute (7) Leukocytosis Status: Acute (8) Neutropenia Status: Acute (9) Pancytopenia Status: Acute (10) Pathological fracture Status: Acute (11) Prophylactic measure Status: Acute (12) S/P lobectomy of lung Status: Acute (13) Severe anemia Status: Acute (14) Severe thrombocytopenia Status: Acute (15) Thrombocytopenia Status: Acute (16) Breast cancer Status: Chronic (17) HTN (hypertension) Status: Chronic
--- NOTE | 2018-01-02 15:41 | CP.PCM.CON ---
History of Present Illness - History of Present Illness History of Present Illness: CONSULTATION DICTATED [place]ILL CYTOPENIA/ METASTATIC DISEASE TO BRAINE / SEIZURE NEW Vs OLD LEDT HEMIPARESIS WITH LEATHERINESS R/O NEW INTRACRANIAL PROCESS Vs NON CONVULSIVE OR POST ICTAL PHASE INC KEPPRA TO 750MG BID MRI/EEG FALL AND SEIZURE PRECAUTION Past Patient History - Infectious Disease Hx of Infectious Diseases: None - Past Medical History & Family History Past Medical History?: Yes - Past Social History Smoking Status: Never Smoked - CARDIAC Hx Hypertension: Yes - PULMONARY Hx Respiratory Disorders: No Other/Comment: lung bx r lower lobe, right lower lobectomy 09/04/2014 - NEUROLOGICAL Hx Neurological Disorder: No - HEENT Hx HEENT Problems: No - RENAL Hx Chronic Kidney Disease: No - ENDOCRINE/METABOLIC Hx Endocrine Disorders: No - HEMATOLOGICAL/ONCOLOGICAL Hx Anemia: Yes (blood transfusions) Hx Cancer: Yes Hx Chemotherapy: Yes Hx Metastesis: Yes - INTEGUMENTARY Hx Dermatological Problems: Yes Other/Comment: LEFT BREAST MASTECTOMY - MUSCULOSKELETAL/RHEUMATOLOGICAL Hx Musculoskeletal Disorders: Yes Hx Falls: Yes Hx Unsteady Gait: Yes (off balance unsteady at times) - GASTROINTESTINAL Other/Comment: breast ca and chemo - GENITOURINARY/GYNECOLOGICAL Hx Genitourinary Disorders: No - PSYCHIATRIC Hx Psychophysiologic Disorder: No Hx Substance Use: No - SURGICAL HISTORY Hx Surgeries: Yes Hx Mastectomy: Yes Hx Vascular Access Device: Yes Other/Comment: R sided port. - ANESTHESIA Hx Anesthesia: Yes Hx Anesthesia Reactions: No Hx Malignant Hyperthermia: No Meds Allergies/Adverse Reactions: Allergies Allergy/AdvReac Type Severity Reaction Status Date / Time No Known Allergies Allergy Verified 12/10/17 13:31 - Medications Medications: Current Medications Amlodipine Besylate (Norvasc) 5 mg PO DAILY [facility] Last Admin: 01/02/18 11:17 Dose: 5 mg Dexamethasone (Decadron Inj) 4 mg IVP BID [facility] Last Admin: 01/02/18 11:27 Dose: 4 mg Famotidine (Pepcid) 20 mg PO BID [facility] Last Admin: 01/02/18 11:18 Dose: 20 mg Ciprofloxacin (Cipro 400mg/200ml Dsw) 400 mg in 200 mls @ 133 mls/hr IVPB Q12H [facility] Last Admin: 01/02/18 14:27 Dose: 133 mls/hr Levetiracetam 750 mg/ Sodium (Chloride) 107.5 mls @ 420 mls/hr IVPB BID [facility] Last Admin: 01/02/18 11:18 Dose: 420 mls/hr Ondansetron HCl (Zofran Inj) 4 mg IVP Q8H PRN PRN Reason: Nausea/Vomiting Polyethylene Glycol (Miralax) 17 gm PO DAILY [facility] Last Admin: 01/02/18 11:18 Dose: 17 gm Results - Vital Signs Recent Vital Signs: Last Vital Signs Temp 97.3 F L 01/02/18 08:06 Pulse 87 01/02/18 08:06 Resp 20 01/02/18 08:06 BP 128/84 01/02/18 08:06 Pulse Ox 100 01/02/18 08:06 - Labs Result Diagrams: 01/02/18 07:01 01/02/18 07:01 Labs: Laboratory Results - last 24 hr 01/02/18 01/02/18 07:01 07:01 WBC 3.8 L RBC 3.64 L Hgb 12.2 Hct 37.1 MCV 101.7 H MCH 33.5 H MCHC 33.0 RDW 18.7 H Plt Count 42 L D MPV 8.6 Neut % (Auto) 81.4 H Lymph % (Auto) 7.7 L [place] % (Auto) 10.5 H Eos % (Auto) 0.0 Baso % (Auto) 0.4 Neut # (Auto) 3.1 Lymph # (Auto) 0.3 L [place] # (Auto) 0.4 Eos # (Auto) 0.0 Baso # (Auto) 0.0 Neutrophils % (Manual) 70 Band Neutrophils % 8 H Lymphocytes % (Manual) 10 L Monocytes % (Manual) 12 H Nucleated RBC % 1 H Toxic Granulation Present Platelet Estimate Decreased L Large Platelets Present Polychromasia Slight Hypochromasia (manual) Slight Poikilocytosis (manual Slight Anisocytosis (manual) Moderate Macrocytosis (manual) Moderate Ovalocytes Slight Schistocytes Slight Sodium 138 Potassium 3.9 Chloride 96 L Carbon Dioxide 36 H Anion Gap 10 BUN 28 H Creatinine 0.7 Est GFR ( Amer) > 60 Est GFR (Non-Af Amer) > 60 Random Glucose 121 H Calcium 8.9 Phosphorus 3.6 Magnesium 1.5 L Total Bilirubin 0.4 AST 24 ALT 37 Alkaline Phosphatase 71 Total Protein 6.1 L Albumin 3.2 L Globulin 2.9 Albumin/Globulin Ratio 1.1
[2018-01-02 17:42] LABS: MAGNESIUM 1.6 mg/dL (1.6-2.3)
[2018-01-02 18:28] LABS: PROLACTIN 29.6 ng/mL (3.0-18.9)
--- NOTE | 2018-01-02 22:08 | CP.PCM.PN ---
Subjective - Date & Time of Evaluation Date of Evaluation: 01/02/18 Time of Evaluation: 17:00 - Subjective Subjective: Mental status improved today, seen eating. Objective - Vital Signs/Intake and Output Vital Signs (last 24 hours): Temp Pulse Resp BP Pulse Ox 97.3 F L 87 20 128/84 100 01/02/18 08:06 01/02/18 08:06 01/02/18 08:06 01/02/18 08:06 01/02/18 08:06 Intake and Output: 01/02/18 01/03/18 18:59 06:59 Intake Total 750 Balance 750 - Medications Medications: Current Medications Amlodipine Besylate (Norvasc) 5 mg PO DAILY [facility] Last Admin: 01/02/18 11:17 Dose: 5 mg Dexamethasone (Decadron Inj) 4 mg IVP BID [facility] Last Admin: 01/02/18 17:57 Dose: 4 mg Famotidine (Pepcid) 20 mg PO BID [facility] Last Admin: 01/02/18 17:59 Dose: 20 mg Ciprofloxacin (Cipro 400mg/200ml Dsw) 400 mg in 200 mls @ 133 mls/hr IVPB Q12H [facility] Last Admin: 01/02/18 14:27 Dose: 133 mls/hr Levetiracetam 750 mg/ Sodium (Chloride) 107.5 mls @ 420 mls/hr IVPB BID [facility] Last Admin: 01/02/18 17:51 Dose: 420 mls/hr Ondansetron HCl (Zofran Inj) 4 mg IVP Q8H PRN PRN Reason: Nausea/Vomiting Polyethylene Glycol (Miralax) 17 gm PO DAILY [facility] Last Admin: 01/02/18 11:18 Dose: 17 gm - Labs Labs: 01/02/18 07:01 01/02/18 07:01 - Head Exam Head Exam: ATRAUMATIC - Eye Exam Eye Exam: Normal appearance - ENT Exam ENT Exam: Mucous Membranes Dry - Respiratory Exam Respiratory Exam: NORMAL BREATHING PATTERN - Cardiovascular Exam Cardiovascular Exam: +S1, +S2 - GI/Abdominal Exam GI & Abdominal Exam: Normal Bowel Sounds Assessment and Plan (1) Pancytopenia due to chemotherapy Assessment & Plan: counts improved Status: Acute (2) Breast cancer Assessment & Plan: stage IV outpatient treatment. Status: Chronic
[2018-01-03 01:22] VITALS: RESP 20
[2018-01-03] MEDS: Ciprofloxacin 400mg/200ml D5W 400 MG/200 ML BAG IVPB SCH ×2 (02:18→15:00)
--- NOTE | 2018-01-03 03:13 | CON ---
DATE: ATTENDING PHYSICIAN: Vero Benjamin MD The patient is in room number 3356, bed 1. REASON FOR CONSULTATION: Change in mental status. CHIEF COMPLAINT: The patient was admitted with history of generalized weakness from her treatment for her cancer. From neurological point of view, I was called in to evaluate her for further management. HISTORY OF PRESENT ILLNESS: Ms. Laura Torres is an unfortunate 52-year-old right-handed female presenting with generalized weakness. Recently, she has been getting radiation therapy for her metastatic lesion in her neck at [facility]. Following this treatment, the patient has been getting weakness with poor appetite. No history of fall. No history of trauma. No history of involuntary movements. However, she has significant change in mental status, increase in her sleepiness for the last few days. PAST MEDICAL HISTORY: Significant for breast cancer which was diagnosed 5 years ago, status post surgery and chemotherapy, followed with lung metastatic process with surgery of the lung and radiation therapy. Recent history of neck pain, been worked up for compression fracture in the cervical region, undergone radiation therapy at [facility]. FAMILY HISTORY: Noncontributory. PERSONAL HISTORY: Denies smoking or alcohol use. REVIEW OF SYSTEMS: 12-point system has been reviewed; from neuro, change in mental status. MEDICATIONS: Cipro, Decadron, levetiracetam, Miralax, Norvasc, Pepcid, and Zofran. PHYSICAL EXAMINATION VITAL SIGNS: Blood pressure 128/84, mean artery pressure of 98, respiratory rate 16, temperature 97.3, pulse rate is 87 and regular. NECK: Supple. No carotid bruits. HEART: Sounds regular. CHEST: Fair air entry. EXTREMITIES: Left leg externally rotated. NEUROLOGIC: The patient examined in the presence of her sisters. She is awake, alert, and oriented to person only. She could not able to recognize place, she could not recognize her sisters. Some social smiling. Immediately, she falls sleep. She moves right upper and lower extremities more than left side. Extraocular movement, some conjugate gaze. Good corneal reflex. No facial sensory deficit. Significant facial asymmetry manifesting as flattening of the left nasolabial fold. Hearing seems to be intact. Tongue is moist. She is on Port-A-Cath placement on her right side of the chest. She moves right side more than her left side. Tone is slightly increased on her left side. Deep tendon reflexes, biceps, brachialis, triceps are 1+ on the left side, right side absent. Both knees are absent. Both ankles are absent. Plantars are upgoing on both sides. Sensory examination, responds to pain symmetrically on both sides. Cortical sensation is unable to test because of her increasing letharginess. WORKUP: WBC 3.8, hemoglobin 12.2, hematocrit 37.1, and platelet 32-42. Sodium 138, potassium 3.9, chloride 96, bicarbonate 36, BUN 28, creatinine 0.7, GFR more than 60. Glucose 121. CONCLUSION: Ms. Sanchez Achiaa neurologic examination, presenting with bilateral cerebral dysfunction, increasing letharginess, all suggestive of possibly increasing cerebral pressure. The patient also manifesting with left hemiparesis, which may be old versus new. Considering her risk factors of metastatic breast cancer, metastatic lesion should be ruled out. History of seizures. The patient may be having a nonconvulsive seizures, postictal phase, presenting with paresis on her left side. Other possible causes of metabolic and electrolyte imbalance should be corrected. Appropriate antibiotic for her infectious source. RECOMMENDATIONS: 1. The patient should have MRI of the brain. 2. EEG. 3. Blood workup as per the order. 4. Considering her seizures history, the patient's Keppra dose is increased to 750 mg twice a day. The patient will be followed closely with you. Scot Cardenas MD
--- NOTE | 2018-01-03 10:24 | PN ---
DATE: 01/03/2018. TIME OF EVALUATION: 07:05 a.m. NEUROLOGICAL PROBLEM: Change in mental status with multiple metastatic lesion from breast cancer. PHYSICAL EXAMINATION: VITAL SIGNS: Blood pressure 128/87, mean arterial pressure 100, respiratory rate 16, temperature 98.2, pulse rate 99 and regular. NEUROLOGIC: The patient is awake, verbally responsive. Speech only one-word answers to straight requesting. At times, she answers, sometimes she does not answer. She moves right more than her left side as per her exam yesterday. Her previous MRI which was done in 11/2017 being reviewed by me showed multiple nonenhancing lesion in bilateral, cortical and subcortical lesion as well as both cerebellar hemisphere. One enhancing lesion was seen in left . There is encephalomalacia seen over her left parietal occipital region, which probably secondary to these old stroke versus a metastatic process as well. LABORATORY DATA: Her recent blood workup, WBC 3.8, hemoglobin 12.2, hematocrit 37.1, platelet 42, sodium 138, potassium 3.9, chloride 96, bicarbonate 36, BUN 28, creatinine 0.7, GFR more than 60. Her prolactin level was 29.6 which is higher consistent probably she may have seizures which is nonconvulsive pattern. RECOMMENDATIONS: 1. Electroencephalogram, which is requested to be done today. 2. MRI of the brain should be done to rule out any new focal pathology. Continue the present management. The patient will be followed closely with you. Scot Cardenas MD
[2018-01-03] MEDS: POLYETHYLENE GLYCOL 3350 17 GM/Dose PACKET PO SCH (11:00)
[2018-01-03] MEDS: Dexamethasone 4 mg/1 ml IVP SCH ×2 (11:00→18:46)
--- NOTE | 2018-01-03 15:55 | MRI ---
PROCEDURE: MRI of the brain dated 01/03/2018 HISTORY: Metastasis. COMPARISON: Comparison made with prior MRI of the brain [place] [facility] [place]QUE: Multiplanar, multisequence MR images of the brain were obtained without intravenous contrast enhancement. FINDINGS: HEMORRHAGE: No acute parenchymal, subarachnoid or extra-axial hemorrhage. No evidence hemosiderin deposition identified on gradient echo weighted sequence. DWI: No evidence of an acute or early subacute infarction seen on diffusion imaging. BRAIN PARENCHYMA: Re- demonstrated are edematous changes prolonged T2 signal changes seen in the left superior and inferior cerebellar region which were sites of enhancing metastatic lesions on prior exam. There is a new area of increased T2 signal within the vermian mid vermis. Additionally, multiple small focal areas of increased T2 signal seen scattered about the subcortical white matter both cerebral hemispheres some of which were present on the prior exam. These changes are of uncertain etiology though differential diagnosis would include chronic infarct changes however small metastatic lesions must be excluded with postcontrast MRI of the brain. 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 There is a locally enlarged subarachnoid space in the pre cervicomedullary region that could represent an incidental small arachnoid cyst. VENTRICLES: No obstructive hydrocephalus. CRANIUM: Unremarkable. ORBITS: Orbits and contents grossly unremarkable. PARANASAL SINUSES/MASTOIDS: Mild mucosal thickening left chamber sphenoid sinus as well as a few ethmoid air cells. Minimal mucosal thickening noted within both maxillary antra with questionable tiny fluid level left maxillary antrum. Partial opacification right mastoid air complex VASCULAR SYSTEM: Visualized major vascular flow voids at skull base patent. OTHER FINDINGS: None. IMPRESSION: Re- demonstrated are edematous changes prolonged T2 signal changes seen in the left superior and inferior cerebellar region which were sites of enhancing metastatic lesions on prior exam. There is a new area of increased T2 signal within the vermian mid vermis. Additionally, multiple small focal areas of increased T2 signal seen scattered about the subcortical white matter both cerebral hemispheres some of which were present on the prior exam. These changes are of uncertain etiology though differential diagnosis would include chronic infarct changes however small metastatic lesions must be excluded with postcontrast MRI of the brain. 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 There is a locally enlarged subarachnoid space in the pre cervicomedullary region that could represent an incidental small arachnoid cyst. Mild mucoperiosteal inflammatory changes within the aforementioned paranasal sinuses. Partial opacification right mastoid air complex These findings discussed with Dr. Cardenas at approximately 3:30 p.m. with written down and read back verification.
[2018-01-03] MEDS ORDERED: Gadodiamide 287 MG/ML VIAL (15ML) IV ONE (18:17)
--- NOTE | 2018-01-03 19:20 | CP.PCM.PN ---
Subjective - Date & Time of Evaluation Date of Evaluation: 01/03/18 Time of Evaluation: 04:00 - Subjective Subjective: dictated Objective - Vital Signs/Intake and Output Vital Signs (last 24 hours): Temp Pulse Resp BP Pulse Ox 98.2 F 92 H 20 125/87 98 01/03/18 17:14 01/03/18 17:14 01/03/18 17:14 01/03/18 17:14 01/03/18 17:14 Intake and Output: 01/03/18 01/04/18 18:59 06:59 Intake Total 320 Balance 320 - Medications Medications: Current Medications Amlodipine Besylate (Norvasc) 5 mg PO DAILY [facility] Last Admin: 01/03/18 11:00 Dose: 5 mg Ciprofloxacin (Cipro) 500 mg PO Q12H [facility] Dexamethasone (Decadron Inj) 4 mg IVP BID [facility] Last Admin: 01/03/18 18:46 Dose: 4 mg Famotidine (Pepcid) 20 mg PO BID [facility] Last Admin: 01/03/18 18:46 Dose: 20 mg Levetiracetam 750 mg/ Sodium (Chloride) 107.5 mls @ 420 mls/hr IVPB BID [facility] Last Admin: 01/03/18 18:46 Dose: 420 mls/hr Ondansetron HCl (Zofran Inj) 4 mg IVP Q8H PRN PRN Reason: Nausea/Vomiting Polyethylene Glycol (Miralax) 17 gm PO DAILY [facility] Last Admin: 01/03/18 11:00 Dose: Not Given - Labs Labs: 01/02/18 07:01 01/02/18 07:01
--- NOTE | 2018-01-03 19:24 | CP.PCM.PN ---
Subjective - Date & Time of Evaluation Date of Evaluation: 01/03/18 Time of Evaluation: 07:00 - Subjective Subjective: clinically same Objective - Vital Signs/Intake and Output Vital Signs (last 24 hours): Temp Pulse Resp BP Pulse Ox 98.2 F 92 H 20 125/87 98 01/03/18 17:14 01/03/18 17:14 01/03/18 17:14 01/03/18 17:14 01/03/18 17:14 Intake and Output: 01/03/18 01/04/18 18:59 06:59 Intake Total 320 Balance 320 - Medications Medications: Current Medications Amlodipine Besylate (Norvasc) 5 mg PO DAILY [facility] Last Admin: 01/03/18 11:00 Dose: 5 mg Ciprofloxacin (Cipro) 500 mg PO Q12H [facility] Dexamethasone (Decadron Inj) 4 mg IVP BID [facility] Last Admin: 01/03/18 18:46 Dose: 4 mg Famotidine (Pepcid) 20 mg PO BID [facility] Last Admin: 01/03/18 18:46 Dose: 20 mg Levetiracetam 750 mg/ Sodium (Chloride) 107.5 mls @ 420 mls/hr IVPB BID [facility] Last Admin: 01/03/18 18:46 Dose: 420 mls/hr Ondansetron HCl (Zofran Inj) 4 mg IVP Q8H PRN PRN Reason: Nausea/Vomiting Polyethylene Glycol (Miralax) 17 gm PO DAILY [facility] Last Admin: 01/03/18 11:00 Dose: Not Given - Labs Labs: 01/02/18 07:01 01/02/18 07:01 - Constitutional Appears: Well - Head Exam Head Exam: ATRAUMATIC, NORMAL INSPECTION, NORMOCEPHALIC - Eye Exam Eye Exam: EOMI, Normal appearance, PERRL Pupil Exam: NORMAL ACCOMODATION, PERRL - ENT Exam ENT Exam: Mucous Membranes Moist, Normal Exam - Neck Exam Neck Exam: Full ROM, Normal Inspection. absent: Lymphadenopathy - Respiratory Exam Respiratory Exam: Decreased Breath Sounds - Cardiovascular Exam Cardiovascular Exam: REGULAR RHYTHM, +S1, +S2 - GI/Abdominal Exam GI & Abdominal Exam: Soft, Diminished Bowel Sounds - Rectal Exam Rectal Exam: Deferred Assessment and Plan (1) Dehydration Status: Acute (2) Metastatic cancer Status: Acute (3) Pancytopenia due to chemotherapy Status: Acute (4) Acute encephalopathy Status: Acute (5) Anemia Status: Acute (6) Delirium Status: Acute (7) Leukocytosis Status: Acute (8) Neutropenia Status: Acute (9) Pancytopenia Status: Acute (10) Pathological fracture Status: Acute (11) Prophylactic measure Status: Acute (12) S/P lobectomy of lung Status: Acute (13) Severe anemia Status: Acute (14) Severe thrombocytopenia Status: Acute (15) Thrombocytopenia Status: Acute (16) Breast cancer Status: Chronic (17) HTN (hypertension) Status: Chronic - Assessment and Plan (Free Text) Plan: Seen and discussed with the staff continue IV antibiotic Overall prognosis poor Spoke to the brother Form signed for the disability Follow-up with Dr. Real Discussed with Dr. real
--- NOTE | 2018-01-03 21:20 | CP.PCM.PN ---
Subjective - Date & Time of Evaluation Date of Evaluation: 01/03/18 Time of Evaluation: 20:00 - Subjective Subjective: Mental status improved Objective - Vital Signs/Intake and Output Vital Signs (last 24 hours): Temp Pulse Resp BP Pulse Ox 98.2 F 92 H 20 125/87 98 01/03/18 17:14 01/03/18 17:14 01/03/18 17:14 01/03/18 17:14 01/03/18 17:14 Intake and Output: 01/03/18 01/04/18 18:59 06:59 Intake Total 320 Balance 320 - Medications Medications: Current Medications Amlodipine Besylate (Norvasc) 5 mg PO DAILY [facility] Last Admin: 01/03/18 11:00 Dose: 5 mg Ciprofloxacin (Cipro) 500 mg PO Q12H [facility] Dexamethasone (Decadron Inj) 4 mg IVP BID [facility] Last Admin: 01/03/18 18:46 Dose: 4 mg Famotidine (Pepcid) 20 mg PO BID [facility] Last Admin: 01/03/18 18:46 Dose: 20 mg Levetiracetam 750 mg/ Sodium (Chloride) 107.5 mls @ 420 mls/hr IVPB BID [facility] Last Admin: 01/03/18 18:46 Dose: 420 mls/hr Ondansetron HCl (Zofran Inj) 4 mg IVP Q8H PRN PRN Reason: Nausea/Vomiting Polyethylene Glycol (Miralax) 17 gm PO DAILY [facility] Last Admin: 01/03/18 11:00 Dose: Not Given - Labs Labs: 01/02/18 07:01 01/02/18 07:01 - Head Exam Head Exam: ATRAUMATIC - Eye Exam Eye Exam: Normal appearance - ENT Exam ENT Exam: Mucous Membranes Dry - Respiratory Exam Respiratory Exam: NORMAL BREATHING PATTERN - Cardiovascular Exam Cardiovascular Exam: +S1, +S2 - GI/Abdominal Exam GI & Abdominal Exam: Normal Bowel Sounds Assessment and Plan (1) Pancytopenia due to chemotherapy Assessment & Plan: improving Status: Acute (2) Breast cancer Assessment & Plan: stage IV supportive care Status: Chronic
--- NOTE | 2018-01-03 23:06 | PN ---
DATE: INFECTIOUS DISEASE FOLLOWUP SUBJECTIVE: She is awake, but she does not want to communicate much. She is in no acute respiratory distress. She has metastatic lesion in the brain and seizure disorder. She also has old left hemiparesis. She was seen by a neurologist and is on Keppra and remains with a poor state of mind, but is in no respiratory distress. PHYSICAL EXAMINATION: VITAL SIGNS: T-max is 98.2, pulse 92, blood pressure 125/87 and respirations are 20. HEENT: Head is atraumatic and normocephalic. NECK: Supple. LUNGS: Clear. HEART: S1 and S2 is regular. ABDOMEN: Soft and nontender. EXTREMITIES: Have no edema. LABORATORY DATA: White count is 3.8, hemoglobin 12.2, hematocrit 37.1, and platelet count is 42. Urine was on 12/27/2017 Strep agalactiae and Klebsiella. ASSESSMENT AND PLAN: We will repeat again a urine culture to see if it is improving and she is taking Cipro b.i.d. and to repeat urine culture if possible and she needs total of 5 to 7 days, which we are already almost near completion. I will order a routine culture as I am not sure if they will be able to get it. She seems to be withdrawn and she has breast cancer with metastasis to the brain and was getting radiation. Bina Amaro MD
--- NOTE | 2018-01-04 08:32 | PN ---
DATE: 01/04/2018. NEUROLOGICAL PROBLEM: Change in mental status with metastatic brain disease from primary breast cancer. PHYSICAL EXAMINATION: VITAL SIGNS: Blood pressure 103/72, mean artery pressure of 82, respiratory rate 20, temperature 98.2, pulse rate 91. NEUROLOGIC: The patient arousable, again speech is spontaneous very limited, left hemiparesis which has been old. No new change in mental status or seizures being documented or witnessed during the hospitalization. MRI been reviewed and discussed with radiologist and she did undergo with contrast as well. The patient also showed multiple enhancing metastatic process in the left cerebellum as well as a few nonenhancing lesion being noted without enhancement to compare with her previous MRI. These all been discussed with radiologist. RECOMMENDATIONS: 1. Continue Keppra. 2. Steroids as she has been getting it. 3. Comfort care. 4. If possible whole brain radiation is also recommended for her brain lesions. Continue the present management. Scot Cardenas MD
[2018-01-04] MEDS: POLYETHYLENE GLYCOL 3350 17 GM/Dose PACKET PO SCH (10:19)
[2018-01-04] MEDS: Dexamethasone 4 mg/1 ml IVP SCH ×2 (10:20→18:03)
--- NOTE | 2018-01-04 10:20 | MRI ---
PROCEDURE: MRI brain dated 01/03/2018 HISTORY: Rule out metastasis. COMPARISON: Comparison made with earlier noncontrast MRI of the brain. Comparison also made with [place] the [place] [facility] [place]CHNIQUE: Pre and post contrast sagittal coronal and axial T1 weighted sequences of the brain performed . 14 cc Omniscan injected for this procedure FINDINGS: HEMORRHAGE: No acute parenchymal hemorrhage. BRAIN PARENCHYMA: Re- demonstrated are 2 rounded enhancing lesions seen in the left posterior inferior and anterolateral superior cerebellar hemispheres consistent with small metastatic deposits. In addition, there are faint leptomeningeal enhancement changes along the tentorium, surrounding the upper surinder- brainstem, adjacent surfaces of the medial temporal lobes and possibly the upper along the folia of the upper vermis (and possibly inferior vermis). In addition, there also appears to be some leptomeningeal enhancement along the anterior inferomedial occipital lobe surfaces as well. 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 There is a very small area of elliptical shaped faint enhancement left posterior temporal parietal subcortical region best seen on axial image series 7 image number 15 that may also represent a small metastatic lesion. . Previously noted small focal areas of discrete prolonged T2 signal scattered about the subcortical white matter of both cerebral hemispheres demonstrate no discernible contrast enhancement. These foci may represent chronic ischemia versus treated metastases. . Localized nonenhancing encephalomalacia changes left occipito parietal watershed zone likely related to old infarct unchanged. Again noted is mild localized enlargement of the subarachnoid spaces anterior to the cervicomedullary junction more so on the left side with mild compression and posterior displacement of the anterior margin of the cervicomedullary junction. This could represent small localized arachnoid cyst. Moderate atrophy. No evidence of obstructive hydrocephalus. . IMPRESSION: Re- demonstrated are metastatic lesions within the left anterolateral and left posterior inferior cerebellar hemisphere. There is also evidence of leptomeningeal enhancement along the surfaces of the tentorium, upper surinder/ brainstem medial surfaces of the temporal lobes bilaterally and superior vermian (possibly inferior vermis) and inferomedial anterior occipital lobe surfaces consistent with leptomeningeal tumor spread. There is also a faint small enhancing lesion in the left posterior temporal parietal watershed zone best seen on axial series 7, image number 15 which may represent an additional metastatic lesion. See above discussion for additional findings and details. Findings discussed with Dr. Ronald burton with written down and read back verification.
[2018-01-04 11:47] LABS: BASO % 0.5 % (0.0-2.0); HEMOGLOBIN 11.8 g/dL (11.0-16.0); LYMPH # 0.4 K/uL (1.0-4.3); LYMPH % 11.3 % (20.0-40.0); MEAN CELL VOLUME 101.1 fL (81.0-99.0); MEAN CORPUSCULAR HGB CONC 33.6 g/dL (33.0-37.0); MEAN PLATELET VOLUME 9.2 fL (7.2-11.7); MONO # 0.4 K/uL (0.0-0.8); MONO % 12.6 % (0.0-10.0); NEUT # 2.6 K/uL (1.8-7.0); NEUT % 75.6 % (50.0-75.0); NRBC % 3.8 % (0.0-2.0); RBC 3.46 Mil/uL (3.80-5.20); RED CELL DISTRIBUTION WIDTH 19.2 % (11.5-14.5); WHITE BLOOD COUNT 3.4 K/uL (4.8-10.8)
[2018-01-04 12:18] LABS: ALB/GLOB RATIO 1.2 (1.0-2.1); ALT/SGPT 36 U/L (9-52); AST/SGOT 25 U/L (14-36); BLOOD UREA NITROGEN 29 mg/dL (7-17); CALCIUM 8.8 mg/dl (8.6-10.4); GFR AFRICAN-AMERICAN > 60; GFR NON-AFRICAN AMERICAN > 60
--- NOTE | 2018-01-04 15:24 | CP.PCM.PCO ---
Physician Communication Note - Physician Communication Note Physician Communication Note: Family meeting at 11 am tomorrow
--- NOTE | 2018-01-04 15:59 | CP.PCM.CON ---
History of Present Illness - History of Present Illness History of Present Illness: Ms Torres is well known to our department. She has metastatic breast cancer. More recently she completed palliative radiation therapy to the cervical spine. She was recently admitted with neck pain, failure to thrive and weakness. Due to a change in mental status, she had a MRI of the brain which redemonstrated brain lesions, however now showed leptomeningeal disease. She is on decadron currently. Dr Real had reached out to us earlier to see if there was any role for radiation therapy given her recent whole brain radiation therapy which she completed in Jul 2017 Past Patient History - Infectious Disease Hx of Infectious Diseases: None - Past Medical History & Family History Past Medical History?: Yes - Past Social History Smoking Status: Never Smoked - CARDIAC Hx Hypertension: Yes - PULMONARY Hx Respiratory Disorders: No Other/Comment: lung bx r lower lobe, right lower lobectomy 09/04/2014 - NEUROLOGICAL Hx Neurological Disorder: No - HEENT Hx HEENT Problems: No - RENAL Hx Chronic Kidney Disease: No - ENDOCRINE/METABOLIC Hx Endocrine Disorders: No - HEMATOLOGICAL/ONCOLOGICAL Hx Anemia: Yes (blood transfusions) Hx Cancer: Yes Hx Chemotherapy: Yes Hx Metastesis: Yes - INTEGUMENTARY Hx Dermatological Problems: Yes Other/Comment: LEFT BREAST MASTECTOMY - MUSCULOSKELETAL/RHEUMATOLOGICAL Hx Musculoskeletal Disorders: Yes Hx Falls: Yes Hx Unsteady Gait: Yes (off balance unsteady at times) - GASTROINTESTINAL Other/Comment: breast ca and chemo - GENITOURINARY/GYNECOLOGICAL Hx Genitourinary Disorders: No - PSYCHIATRIC Hx Psychophysiologic Disorder: No Hx Substance Use: No - SURGICAL HISTORY Hx Surgeries: Yes Hx Mastectomy: Yes Hx Vascular Access Device: Yes Other/Comment: R sided port. - ANESTHESIA Hx Anesthesia: Yes Hx Anesthesia Reactions: No Hx Malignant Hyperthermia: No Meds Allergies/Adverse Reactions: Allergies Allergy/AdvReac Type Severity Reaction Status Date / Time No Known Allergies Allergy Verified 12/10/17 13:31 - Medications Medications: Current Medications Amlodipine Besylate (Norvasc) 5 mg PO DAILY [facility] Last Admin: 01/04/18 10:20 Dose: 5 mg Ciprofloxacin (Cipro) 500 mg PO Q12H [facility] Last Admin: 01/04/18 10:20 Dose: 500 mg Dexamethasone (Decadron Inj) 4 mg IVP BID [facility] Last Admin: 01/04/18 10:20 Dose: 4 mg Famotidine (Pepcid) 20 mg PO BID [facility] Last Admin: 01/04/18 10:21 Dose: 20 mg Levetiracetam 750 mg/ Sodium (Chloride) 107.5 mls @ 420 mls/hr IVPB BID [facility] Last Admin: 01/04/18 10:20 Dose: 420 mls/hr Ondansetron HCl (Zofran Inj) 4 mg IVP Q8H PRN PRN Reason: Nausea/Vomiting Polyethylene Glycol (Miralax) 17 gm PO DAILY [facility] Last Admin: 01/04/18 10:19 Dose: Not Given Results - Vital Signs Recent Vital Signs: Last Vital Signs Temp 98.2 F 01/04/18 00:00 Pulse 91 H 01/04/18 00:00 Resp 20 01/04/18 00:00 BP 103/72 01/04/18 00:00 Pulse Ox 98 01/04/18 00:00 - Labs Result Diagrams: 01/04/18 11:38 01/04/18 11:38 Labs: Laboratory Results - last 24 hr 01/02/18 01/04/18 01/04/18 17:23 11:38 11:38 WBC 3.4 L RBC 3.46 L Hgb 11.8 Hct 35.0 MCV 101.1 H MCH 34.0 H MCHC 33.6 RDW 19.2 H Plt Count 23 L* D MPV 9.2 Neut % (Auto) 75.6 H Lymph % (Auto) 11.3 L [place] % (Auto) 12.6 H Eos % (Auto) 0.0 Baso % (Auto) 0.5 Neut # (Auto) 2.6 Lymph # (Auto) 0.4 L [place] # (Auto) 0.4 Eos # (Auto) 0.0 Baso # (Auto) 0.0 Sodium 136 Potassium 3.7 Chloride 100 Carbon Dioxide 31 H Anion Gap 9 L BUN 29 H Creatinine 0.6 L Est GFR ( Amer) > 60 Est GFR (Non-Af Amer) > 60 Random Glucose 109 H Calcium 8.8 Ionized Calcium 5.0 Total Bilirubin 0.4 AST 25 ALT 36 Alkaline Phosphatase 58 Total Protein 5.6 L Albumin 3.0 L Globulin 2.6 Albumin/Globulin Ratio 1.2 Assessment & Plan - Assessment and Plan (Free Text) Assessment: Ms Torres has 52 year old female with metastatic breast cancer on salvage chemotherapy. She has had continued disease progression despite systemic therapy and local palliative radiation therapy. She recently completed whole brain radiation and more recently palliative radiation to the cervical spine. Unfortunately, given her leptomeningeal disease and recent radiation course, we cannot offer additional treatment. As Dr Real and I discussed, her prognosis is poor and the possibility of local control with reirradiation is very low.
--- NOTE | 2018-01-04 16:40 | CP.PCM.PN ---
Subjective - Date & Time of Evaluation Date of Evaluation: 01/04/18 Time of Evaluation: 07:00 - Subjective Subjective: clinically same Objective - Vital Signs/Intake and Output Vital Signs (last 24 hours): Temp Pulse Resp BP Pulse Ox 98.2 F 91 H 20 103/72 98 01/04/18 00:00 01/04/18 00:00 01/04/18 00:00 01/04/18 00:00 01/04/18 00:00 Intake and Output: 01/04/18 01/04/18 06:59 18:59 Intake Total 500 Output Total 3 Balance 500 -3 - Medications Medications: Current Medications Amlodipine Besylate (Norvasc) 5 mg PO DAILY [facility] Last Admin: 01/04/18 10:20 Dose: 5 mg Ciprofloxacin (Cipro) 500 mg PO Q12H [facility] Last Admin: 01/04/18 10:20 Dose: 500 mg Dexamethasone (Decadron Inj) 4 mg IVP BID [facility] Last Admin: 01/04/18 10:20 Dose: 4 mg Famotidine (Pepcid) 20 mg PO BID [facility] Last Admin: 01/04/18 10:21 Dose: 20 mg Levetiracetam 750 mg/ Sodium (Chloride) 107.5 mls @ 420 mls/hr IVPB BID [facility] Last Admin: 01/04/18 10:20 Dose: 420 mls/hr Ondansetron HCl (Zofran Inj) 4 mg IVP Q8H PRN PRN Reason: Nausea/Vomiting Polyethylene Glycol (Miralax) 17 gm PO DAILY [facility] Last Admin: 01/04/18 10:19 Dose: Not Given - Labs Labs: 01/04/18 11:38 01/04/18 11:38 - Constitutional Appears: Well - Head Exam Head Exam: ATRAUMATIC, NORMAL INSPECTION, NORMOCEPHALIC - Eye Exam Eye Exam: EOMI, Normal appearance, PERRL Pupil Exam: NORMAL ACCOMODATION, PERRL - ENT Exam ENT Exam: Mucous Membranes Moist, Normal Exam - Neck Exam Neck Exam: Full ROM, Normal Inspection. absent: Lymphadenopathy - Respiratory Exam Respiratory Exam: Decreased Breath Sounds - Cardiovascular Exam Cardiovascular Exam: REGULAR RHYTHM, +S1, +S2 - GI/Abdominal Exam GI & Abdominal Exam: Soft, Diminished Bowel Sounds - Rectal Exam Rectal Exam: Deferred Assessment and Plan (1) Dehydration Status: Acute (2) Metastatic cancer Status: Acute (3) Pancytopenia due to chemotherapy Status: Acute (4) Acute encephalopathy Status: Acute (5) Anemia Status: Acute (6) Delirium Status: Acute (7) Leukocytosis Status: Acute (8) Neutropenia Status: Acute (9) Pancytopenia Status: Acute (10) Pathological fracture Status: Acute (11) Prophylactic measure Status: Acute (12) S/P lobectomy of lung Status: Acute (13) Severe anemia Status: Acute (14) Severe thrombocytopenia Status: Acute (15) Thrombocytopenia Status: Acute (16) Breast cancer Status: Chronic (17) HTN (hypertension) Status: Chronic
--- NOTE | 2018-01-04 20:33 | CP.PCM.PN ---
Subjective - Date & Time of Evaluation Date of Evaluation: 01/04/18 Time of Evaluation: 18:00 - Subjective Subjective: Confused, family at bedside Discussed hospice, code status with family, they want to think about it. Objective - Vital Signs/Intake and Output Vital Signs (last 24 hours): Temp Pulse Resp BP Pulse Ox 98 F 95 H 20 116/83 100 01/04/18 15:15 01/04/18 15:15 01/04/18 15:15 01/04/18 15:15 01/04/18 15:15 Intake and Output: 01/04/18 01/05/18 18:59 06:59 Output Total 3 Balance -3 - Medications Medications: Current Medications Amlodipine Besylate (Norvasc) 5 mg PO DAILY [facility] Last Admin: 01/04/18 10:20 Dose: 5 mg Ciprofloxacin (Cipro) 500 mg PO Q12H [facility] Last Admin: 01/04/18 10:20 Dose: 500 mg Dexamethasone (Decadron Inj) 4 mg IVP BID [facility] Last Admin: 01/04/18 18:03 Dose: 4 mg Famotidine (Pepcid) 20 mg PO BID [facility] Last Admin: 01/04/18 18:04 Dose: 20 mg Levetiracetam 750 mg/ Sodium (Chloride) 107.5 mls @ 420 mls/hr IVPB BID [facility] Last Admin: 01/04/18 18:03 Dose: 420 mls/hr Ondansetron HCl (Zofran Inj) 4 mg IVP Q8H PRN PRN Reason: Nausea/Vomiting Polyethylene Glycol (Miralax) 17 gm PO DAILY [facility] Last Admin: 01/04/18 10:19 Dose: Not Given - Labs Labs: 01/04/18 11:38 01/04/18 11:38 - Head Exam Head Exam: ATRAUMATIC - Eye Exam Eye Exam: Normal appearance - ENT Exam ENT Exam: Mucous Membranes Dry - Respiratory Exam Respiratory Exam: NORMAL BREATHING PATTERN - Cardiovascular Exam Cardiovascular Exam: +S1, +S2 - GI/Abdominal Exam GI & Abdominal Exam: Normal Bowel Sounds Assessment and Plan (1) Pancytopenia due to chemotherapy Assessment & Plan: secondary to chemotherapy Status: Acute (2) Breast cancer Assessment & Plan: stage IV MRI brain shows progressive disease, not a treatment candidate palliative care evaluation Status: Chronic
[2018-01-05 07:00] LABS: HEMOGLOBIN 12.9 g/dL (11.0-16.0); MEAN CELL VOLUME 102.3 fL (81.0-99.0); MEAN CORPUSCULAR HEMOGLOBIN 33.7 pg (27.0-31.0); MEAN PLATELET VOLUME 9.3 fL (7.2-11.7); RBC 3.82 Mil/uL (3.80-5.20); RED CELL DISTRIBUTION WIDTH 19.3 % (11.5-14.5); WHITE BLOOD COUNT 3.4 K/uL (4.8-10.8)
--- NOTE | 2018-01-05 09:02 | PN ---
DATE: 01/05/2018. NEUROLOGICAL PROBLEM: Metastatic brain disease. PHYSICAL EXAMINATION: VITAL SIGNS: Blood pressure 121/88, mean artery pressure of 99, respiratory rate 16, temperature 97.8. NEUROLOGIC: The patient is obtunded, responds to her name verbally. Left hemiparesis unchanged. Her workup has been discussed particularly the MRI of the brain with radiologist. Extensive recurrent metastatic process over her cerebellum on her left side with meningeal enhancement. The patient did have radiation of her brain in the past. Considering her clinical situation and the history, the patient is not a candidate for radiation. RECOMMENDATIONS: 1. Continue the present management with comfort care. 2. Keppra can be continued for seizure prophylaxis. 3. The patient is scheduled to have hospice management. Scot Cardenas MD
[2018-01-05] MEDS: Dexamethasone 4 mg/1 ml IVP SCH ×2 (10:25→17:38)
[2018-01-05] MEDS: POLYETHYLENE GLYCOL 3350 17 GM/Dose PACKET PO SCH (10:25)
--- NOTE | 2018-01-05 13:40 | CP.PCM.CON ---
History of Present Illness - History of Present Illness History of Present Illness: Palliative consult Patient is 52 years old female admitted with a neck pain for 2 days, decreased appetite, and generalized weakness. Patient has known history of breast cancer diagnosed in 2011, and lung metastases diagnosed in 2013. Patient was followed by Dr. Real in [facility]. Patient is post radiation. The MRI of brain was positive for metastases to the brain. No further radiation was recommended. Family meeting held for galls of care discussion. Past medical history * Breast cancer stage IV with metastases to lungs, bones, and the brain, hypertension, anemia, cervical neck compression fractures, post radiation Social history * , has a 4 children in [facility], 2 brothers and 2 sisters in [facility] in [place] and are involved with care Family history * Both parents still alive in good health in [facility]. Family denies any significant family history Review of Systems - Review of Systems All systems: reviewed and no additional remarkable complaints except Review of Systems: Review of systems obtained from the family due to patient's lethargy and weakness. Family patient's condition has declined significantly Past Patient History - Infectious Disease Hx of Infectious Diseases: None - Past Medical History & Family History Past Medical History?: Yes - Past Social History Smoking Status: Never Smoked - CARDIAC Hx Hypertension: Yes - PULMONARY Hx Respiratory Disorders: No Other/Comment: lung bx r lower lobe, right lower lobectomy 09/04/2014 - NEUROLOGICAL Hx Neurological Disorder: No - HEENT Hx HEENT Problems: No - RENAL Hx Chronic Kidney Disease: No - ENDOCRINE/METABOLIC Hx Endocrine Disorders: No - HEMATOLOGICAL/ONCOLOGICAL Hx Anemia: Yes (blood transfusions) Hx Cancer: Yes Hx Chemotherapy: Yes Hx Metastesis: Yes - INTEGUMENTARY Hx Dermatological Problems: Yes Other/Comment: LEFT BREAST MASTECTOMY - MUSCULOSKELETAL/RHEUMATOLOGICAL Hx Musculoskeletal Disorders: Yes Hx Falls: Yes Hx Unsteady Gait: Yes (off balance unsteady at times) - GASTROINTESTINAL Other/Comment: breast ca and chemo - GENITOURINARY/GYNECOLOGICAL Hx Genitourinary Disorders: No - PSYCHIATRIC Hx Psychophysiologic Disorder: No Hx Substance Use: No - SURGICAL HISTORY Hx Surgeries: Yes Hx Mastectomy: Yes Hx Vascular Access Device: Yes Other/Comment: R sided port. - ANESTHESIA Hx Anesthesia: Yes Hx Anesthesia Reactions: No Hx Malignant Hyperthermia: No Meds Allergies/Adverse Reactions: Allergies Allergy/AdvReac Type Severity Reaction Status Date / Time No Known Allergies Allergy Verified 12/10/17 13:31 - Medications Medications: Current Medications Amlodipine Besylate (Norvasc) 5 mg PO DAILY [facility] Last Admin: 01/05/18 10:25 Dose: 5 mg Ciprofloxacin (Cipro) 500 mg PO Q12H [facility] Last Admin: 01/05/18 10:25 Dose: 500 mg Dexamethasone (Decadron Inj) 4 mg IVP BID [facility] Last Admin: 01/05/18 10:25 Dose: 4 mg Famotidine (Pepcid) 20 mg PO BID [facility] Last Admin: 01/05/18 10:25 Dose: 20 mg Levetiracetam 750 mg/ Sodium (Chloride) 107.5 mls @ 420 mls/hr IVPB BID [facility] Last Admin: 01/05/18 10:13 Dose: 420 mls/hr Ondansetron HCl (Zofran Inj) 4 mg IVP Q8H PRN PRN Reason: Nausea/Vomiting Polyethylene Glycol (Miralax) 17 gm PO DAILY [facility] Last Admin: 01/05/18 10:25 Dose: 17 gm Physical Exam - Constitutional Appears: No Acute Distress, Chronically Ill - Head Exam Head Exam: ATRAUMATIC, NORMAL INSPECTION, NORMOCEPHALIC - Eye Exam Eye Exam: EOMI, Normal appearance, PERRL Pupil Exam: NORMAL ACCOMODATION, PERRL - ENT Exam ENT Exam: Mucous Membranes Dry - Neck Exam Neck exam: Positive for: Tenderness - Respiratory Exam Respiratory Exam: Decreased Breath Sounds, Rhonchi - Cardiovascular Exam Cardiovascular Exam: Tachycardia, REGULAR RHYTHM - GI/Abdominal Exam GI & Abdominal Exam: Hypoactive Bowel Sounds - Rectal Exam Rectal Exam: Deferred - Extremities Exam Extremities exam: Positive for: normal inspection - Back Exam Back exam: NORMAL INSPECTION - Neurological Exam Neurological exam: Alert, Oriented x3 - Psychiatric Exam Psychiatric exam: Depressed, Flat Affect - Skin Skin Exam: Normal Color, Warm Results - Vital Signs Recent Vital Signs: Last Vital Signs Temp 98 F 01/05/18 08:09 Pulse 82 01/05/18 08:09 Resp 20 01/05/18 08:09 BP 114/81 01/05/18 08:09 Pulse Ox 97 01/05/18 08:09 - Labs Result Diagrams: 01/05/18 06:48 01/04/18 11:38 Labs: Laboratory Results - last 24 hr 01/05/18 06:48 WBC 3.4 L RBC 3.82 Hgb 12.9 Hct 39.1 MCV 102.3 H MCH 33.7 H MCHC 33.0 RDW 19.3 H Plt Count 23 L* MPV 9.3 Assessment & Plan - Assessment and Plan (Free Text) Assessment: Palliative consult CODE status FULL code, there is no advance directive on chart, PPS 10% I reviewed medical records, all diagnostic studies, examining patient in the bed , and discussed goals of care with the family Patient seen and examined in the bed. Patient alert, refuses to participate in discussion. Patient keeps her eyes closed. Patient doesn't answer the questions. Patient looks depressed, chronically ill, in no acute distress. Physical exam was limited due to patient's refusal to participate. Blood pressure 103/72, 8 are 91. White blood count 3.4, hemoglobin 11.8, platelets 23. Patient is afebrile. Family meeting held, attended by patient's 2 brothers and 2 sisters in law, Omar from [employer], Head Counselor Sarah and Myself. I Reviewed Patient's Clinical Presentation and elicited Family's Knowledge about Patient's Condition Family stated full understanding about the severity of patient's condition. They understand that condition is terminal. Their main concern was patient's comfort. We discussed various levels of comfort care for these patient. I offered information about the hospice care as the most appropriate level of care at this stage of patient's life. One of the family members was concern with Morphine being given during the hospice care and believes that it would speed up patient's . Yudith UNDERWOOD and myself clarified the difference between palliative care and hospice care and the purpose of use of morphine . After a long discussions about options what would be the most appropriate For this patient, family decided to have the patient transferred to a fci . Omar was to help them with choosing the appropriate fci in the [facility]. CODE STATUS discussed. Family understood that further aggressive interventions are not option for these dying patient. As they preferred comfortable and natural and patient dying in her own pace family chose DNR/DNI. I assisted one of the brothers Mr. Jiménez in completing the POLST.Family hopes, will leave long enough, to see her children one more time when they come from [facility]. Impressions * Chronically ill patient with terminal diagnosis of metastatic cancer disease * Patient is disconnecting herself from the environment and doesn't interact * Further aggressive treatments in the term of radiation or chemotherapy are not further suggested by Dr. Real * Patient is at risk for malnutrition, dehydration, and pressure sores do to overall condition and poor appetite * Patient's wishes for end-of-life care are not known. Familyadvocates for the patient and wishes she dies peaceful * Family prefers palliative care over hospice care at the fci Suggestions * Continue supportive treatment and symptoms control * Discharge the fci when appropriate * DNR/DNI Thank you for consulting palliative care Advanced care planning, 60 minutes
[2018-01-05] MEDS ORDERED: Mag&Al/Simet/Diphen/Lido 237 ML KIT PO PRN (15:49)
--- NOTE | 2018-01-05 17:57 | CP.PCM.PN ---
Subjective - Date & Time of Evaluation Date of Evaluation: 01/05/18 Time of Evaluation: 07:00 - Subjective Subjective: clinically same Objective - Vital Signs/Intake and Output Vital Signs (last 24 hours): Temp Pulse Resp BP Pulse Ox 98.4 F 89 20 118/87 99 01/05/18 15:30 01/05/18 15:30 01/05/18 15:30 01/05/18 15:30 01/05/18 15:30 Intake and Output: 01/05/18 01/05/18 06:59 18:59 Intake Total 600 Balance 600 - Medications Medications: Current Medications Amlodipine Besylate (Norvasc) 5 mg PO DAILY [facility] Last Admin: 01/05/18 10:25 Dose: 5 mg Ciprofloxacin (Cipro) 500 mg PO Q12H [facility] Last Admin: 01/05/18 10:25 Dose: 500 mg Dexamethasone (Decadron Inj) 4 mg IVP BID [facility] Last Admin: 01/05/18 17:38 Dose: 4 mg Famotidine (Pepcid) 20 mg PO BID [facility] Last Admin: 01/05/18 17:38 Dose: 20 mg Levetiracetam 750 mg/ Sodium (Chloride) 107.5 mls @ 420 mls/hr IVPB BID [facility] Last Admin: 01/05/18 17:38 Dose: 420 mls/hr Ondansetron HCl (Zofran Inj) 4 mg IVP Q8H PRN PRN Reason: Nausea/Vomiting Polyethylene Glycol (Miralax) 17 gm PO DAILY [facility] Last Admin: 01/05/18 10:25 Dose: 17 gm Saliva Substitute (First Magic Mouthwash) 5 ml PO QID PRN PRN Reason: Pain, moderate (4-7) - Labs Labs: 01/05/18 06:48 01/04/18 11:38 - Constitutional Appears: Well - Head Exam Head Exam: ATRAUMATIC, NORMAL INSPECTION, NORMOCEPHALIC - Eye Exam Eye Exam: EOMI, Normal appearance, PERRL Pupil Exam: NORMAL ACCOMODATION, PERRL - ENT Exam ENT Exam: Mucous Membranes Moist, Normal Exam - Neck Exam Neck Exam: Full ROM, Normal Inspection. absent: Lymphadenopathy - Respiratory Exam Respiratory Exam: Decreased Breath Sounds - Cardiovascular Exam Cardiovascular Exam: REGULAR RHYTHM, +S1, +S2 - GI/Abdominal Exam GI & Abdominal Exam: Soft, Diminished Bowel Sounds - Rectal Exam Rectal Exam: Deferred Assessment and Plan (1) Dehydration Status: Acute (2) Metastatic cancer Status: Acute (3) Pancytopenia due to chemotherapy Status: Acute (4) Acute encephalopathy Status: Acute (5) Anemia Status: Acute (6) Delirium Status: Acute (7) Leukocytosis Status: Acute (8) Neutropenia Status: Acute (9) Pancytopenia Status: Acute (10) Pathological fracture Status: Acute (11) Prophylactic measure Status: Acute (12) S/P lobectomy of lung Status: Acute (13) Severe anemia Status: Acute (14) Severe thrombocytopenia Status: Acute (15) Thrombocytopenia Status: Acute (16) Breast cancer Status: Chronic (17) HTN (hypertension) Status: Chronic
--- NOTE | 2018-01-05 22:01 | CP.PCM.PN ---
Subjective - Date & Time of Evaluation Date of Evaluation: 01/05/18 Time of Evaluation: 20:00 - Subjective Subjective: Appears comfortable, confused Objective - Vital Signs/Intake and Output Vital Signs (last 24 hours): Temp Pulse Resp BP Pulse Ox 98.4 F 89 20 118/87 99 01/05/18 15:30 01/05/18 15:30 01/05/18 15:30 01/05/18 15:30 01/05/18 15:30 - Medications Medications: Current Medications Amlodipine Besylate (Norvasc) 5 mg PO DAILY [facility] Last Admin: 01/05/18 10:25 Dose: 5 mg Ciprofloxacin (Cipro) 500 mg PO Q12H [facility] Last Admin: 01/05/18 10:25 Dose: 500 mg Dexamethasone (Decadron Inj) 4 mg IVP BID [facility] Last Admin: 01/05/18 17:38 Dose: 4 mg Famotidine (Pepcid) 20 mg PO BID [facility] Last Admin: 01/05/18 17:38 Dose: 20 mg Levetiracetam 750 mg/ Sodium (Chloride) 107.5 mls @ 420 mls/hr IVPB BID [facility] Last Admin: 01/05/18 17:38 Dose: 420 mls/hr Ondansetron HCl (Zofran Inj) 4 mg IVP Q8H PRN PRN Reason: Nausea/Vomiting Polyethylene Glycol (Miralax) 17 gm PO DAILY [facility] Last Admin: 01/05/18 10:25 Dose: 17 gm Saliva Substitute (First Magic Mouthwash) 5 ml PO QID PRN PRN Reason: Pain, moderate (4-7) - Labs Labs: 01/05/18 06:48 01/04/18 11:38 - Head Exam Head Exam: ATRAUMATIC - Eye Exam Eye Exam: Normal appearance - ENT Exam ENT Exam: Mucous Membranes Dry - Respiratory Exam Respiratory Exam: NORMAL BREATHING PATTERN - Cardiovascular Exam Cardiovascular Exam: +S1, +S2 - GI/Abdominal Exam GI & Abdominal Exam: Normal Bowel Sounds Assessment and Plan (1) Pancytopenia due to chemotherapy Assessment & Plan: no transfusion indication cont. to monitor Status: Acute (2) Breast cancer Assessment & Plan: stage IV not a treatment candidate family prefers palliative care at [place] DNR/DNI Status: Chronic
[2018-01-06 00:23] VITALS: TEMP 97.3
[2018-01-06 08:23] VITALS: BP 131/91; PULSE 83; O2SAT 98
[2018-01-06] MEDS: POLYETHYLENE GLYCOL 3350 17 GM/Dose PACKET PO SCH (11:58)
[2018-01-06] MEDS: Dexamethasone 4 mg/1 ml IVP SCH ×2 (11:58→17:53)
--- NOTE | 2018-01-06 17:46 | CP.PCM.PN ---
Subjective - Date & Time of Evaluation Date of Evaluation: 01/06/18 Time of Evaluation: 11:00 - Subjective Subjective: Alert, awake, remains weak, no sob or acute distress. Objective - Vital Signs/Intake and Output Vital Signs (last 24 hours): Temp Pulse Resp BP Pulse Ox 97.3 F L 83 20 131/91 H 98 01/06/18 08:22 01/06/18 08:22 01/06/18 08:22 01/06/18 08:22 01/06/18 08:22 Intake and Output: 01/06/18 01/06/18 06:59 18:59 Intake Total 470 Balance 470 - Medications Medications: Current Medications Amlodipine Besylate (Norvasc) 5 mg PO DAILY [facility] Last Admin: 01/06/18 11:58 Dose: 5 mg Ciprofloxacin (Cipro) 500 mg PO Q12H [facility] Last Admin: 01/06/18 11:58 Dose: 500 mg Dexamethasone (Decadron Inj) 4 mg IVP BID [facility] Last Admin: 01/06/18 11:58 Dose: 4 mg Famotidine (Pepcid) 20 mg PO BID [facility] Last Admin: 01/06/18 11:58 Dose: 20 mg Levetiracetam 750 mg/ Sodium (Chloride) 107.5 mls @ 420 mls/hr IVPB BID [facility] Last Admin: 01/06/18 11:58 Dose: 420 mls/hr Ondansetron HCl (Zofran Inj) 4 mg IVP Q8H PRN PRN Reason: Nausea/Vomiting Polyethylene Glycol (Miralax) 17 gm PO DAILY [facility] Last Admin: 01/06/18 11:58 Dose: 17 gm Saliva Substitute (First Magic Mouthwash) 5 ml PO QID PRN PRN Reason: Pain, moderate (4-7) Last Admin: 01/06/18 08:47 Dose: 5 ml - Labs Labs: 01/05/18 06:48 01/04/18 11:38 Assessment and Plan - Assessment and Plan (Free Text) Plan: Patient is seen and examined, Alert, responsive, remains weak. Able to eat small amounts. Plan to discharge to alf as per family. Code status DNR/ DNI, no aggressive treatments as per family. Will transfer to [facility] today. Discussed with DR Peace Benjamin, agreed with the plan.
[2018-01-06] MEDS ORDERED: Oxycodone/Acetaminophen 5/325 mg Tab PO STA (18:10)
--- NOTE | 2018-01-06 21:06 | CP.PCM.PN ---
Subjective - Date & Time of Evaluation Date of Evaluation: 01/06/18 Time of Evaluation: 17:00 - Subjective Subjective: Confused, family at bedside for transfer to rehab Objective - Vital Signs/Intake and Output Vital Signs (last 24 hours): Temp Pulse Resp BP Pulse Ox 97.3 F L 83 20 131/91 H 98 01/06/18 08:22 01/06/18 08:22 01/06/18 08:22 01/06/18 08:22 01/06/18 08:22 - Medications Medications: Current Medications Amlodipine Besylate (Norvasc) 5 mg PO DAILY [facility] Last Admin: 01/06/18 11:58 Dose: 5 mg Ciprofloxacin (Cipro) 500 mg PO Q12H [facility] Last Admin: 01/06/18 11:58 Dose: 500 mg Dexamethasone (Decadron Inj) 4 mg IVP BID [facility] Last Admin: 01/06/18 17:53 Dose: 4 mg Famotidine (Pepcid) 20 mg PO BID [facility] Last Admin: 01/06/18 17:54 Dose: 20 mg Levetiracetam 750 mg/ Sodium (Chloride) 107.5 mls @ 420 mls/hr IVPB BID [facility] Last Admin: 01/06/18 17:53 Dose: 420 mls/hr Ondansetron HCl (Zofran Inj) 4 mg IVP Q8H PRN PRN Reason: Nausea/Vomiting Polyethylene Glycol (Miralax) 17 gm PO DAILY [facility] Last Admin: 01/06/18 11:58 Dose: 17 gm Saliva Substitute (First Magic Mouthwash) 5 ml PO QID PRN PRN Reason: Pain, moderate (4-7) Last Admin: 01/06/18 08:47 Dose: 5 ml - Labs Labs: 01/05/18 06:48 01/04/18 11:38 - Head Exam Head Exam: ATRAUMATIC - Eye Exam Eye Exam: Normal appearance - ENT Exam ENT Exam: Mucous Membranes Dry - Respiratory Exam Respiratory Exam: NORMAL BREATHING PATTERN - Cardiovascular Exam Cardiovascular Exam: +S1, +S2 - GI/Abdominal Exam GI & Abdominal Exam: Normal Bowel Sounds Assessment and Plan (1) Pancytopenia due to chemotherapy Assessment & Plan: no transfusion support required at this time Status: Acute (2) Breast cancer Assessment & Plan: stage IV progressive brain metastasis family declined hospice DNR/DNI Status: Chronic
== END 2018-01-06 21:34 | DRG 808 ==
LOC: C.ER 12:20 → C.9E 17:22 → C.3T 12-28 09:06
PROVIDERS: ADMIT Internal Medicine Nephrology; ATTEND Internal Medicine Nephrology
PROC: 30233R1 Transfusion of Nonautologous Platelets into Peripheral Vein, Percutaneous Approach (ICD-10-PCS; principal; 2017-12-31)
DX: D61.810 Antineoplastic chemotherapy induced pancytopenia (principal); G93.5 Compression of brain; G93.40 Encephalopathy, unspecified; C78.00 Secondary malignant neoplasm of unspecified lung; C79.31 Secondary malignant neoplasm of brain; C79.51 Secondary malignant neoplasm of bone; M48.52XA Collapsed vertebra, not elsewhere classified, cervical region, initial encounter for fracture; E86.0 Dehydration; G81.94 Hemiplegia, unspecified affecting left nondominant side; N39.0 Urinary tract infection, site not specified; B96.1 Klebsiella pneumoniae [K. pneumoniae] as the cause of diseases classified elsewhere; C50.919 Malignant neoplasm of unspecified site of unspecified female breast; T45.1X5A Adverse effect of antineoplastic and immunosuppressive drugs, initial encounter; I10 Essential (primary) hypertension; G40.909 Epilepsy, unspecified, not intractable, without status epilepticus; G96.19 Other disorders of meninges, not elsewhere classified; Z51.5 Encounter for palliative care; G93.89 Other specified disorders of brain